=== PATIENT | male | born 1950 | race Caucasian/White ===

== ENCOUNTER 2020-11-22 10:53 | Inpatient (IN) ==
[2020-11-22] MEDS ORDERED: NS 500 ML IV 500 ML IV ONE (14:11)
[2020-11-22 14:50] LABS: BASOPHILS % (AUTO) 0.7 % (0.2-1.0); EOSINOPHILS # (AUTO) 0.2 x10^3/uL (0.0-0.2); EOSINOPHILS % (AUTO) 2.5 % (0.9-2.9); HEMATOCRIT 35.7 % (42.0-54.0); HEMOGLOBIN 12.3 g/dL (13.5-18.0); LYMPHOCYTES # (AUTO) 1.3 X10^3/uL (1.3-2.9); LYMPHOCYTES % (AUTO) 18.4 % (21.0-51.0); MEAN CORPUSCULAR HEMOGLOBIN 33.4 pg (27.0-34.0); MEAN CORPUSCULAR HGB CONC 34.5 g/dL (33.0-35.0); MEAN CORPUSCULAR VOLUME 96.7 fL (80.0-100.0); MEAN PLATELET VOLUME 7.9 fL (7.4-11.0); MONOCYTES # (AUTO) 0.9 x10^3/uL (0.3-0.8); MONOCYTES % (AUTO) 12.3 % (0.0-13.0); NEUTROPHILS # (AUTO) 4.7 x10^3/uL (2.2-4.8); NEUTROPHILS % (AUTO) 66.1 % (42.0-75.0); PLATELET COUNT 292 X10^3/uL (150.0-450.0); RED BLOOD COUNT 3.69 X10^6/uL (4.7-6.0); RED CELL DISTRIBUTION WIDTH 14.4 % (11.6-16.5); WHITE BLOOD COUNT 7.1 X10^3/uL (3.6-10.0)
[2020-11-22 14:57] LABS: ALANINE AMINOTRANSFERASE 28 Units/L (12-78); ALBUMIN 2.8 g/dL (3.4-5.0); ALKALINE PHOSPHATASE 121 Units/L (46-116); ASPARTATE AMINO TRANSFERASE 28 Units/L (15-37); BLOOD UREA NITROGEN 13 mg/dL (7-18); CALCIUM 8.5 mg/dL (8.5-10.1); CARBON DIOXIDE 33.4 mmol/L (21-32); CHLORIDE 102 mmol/L (98-107); COR CA(FOR HYPOALB) 9.5 mg/dL (8.5-10.1); CREATININE 0.85 mg/dL (0.70-1.30); MAGNESIUM 0.5 mg/dL (1.7-2.9); SODIUM 142 mmol/L (136-145); TOTAL PROTEIN 7.6 g/dL (6.4-8.2); eGFR NON BLACK RACES > 60 (>60)
[2020-11-22 15:06] LABS: CKMB % 1.7 % (<4); CREATINE KINASE 107 Units/L (39-308); CREATINE KINASE MB 1.8 ng/mL (0-4.0); TROPONIN I < 0.02 ng/mL (0-1.5)
[2020-11-22] MEDS ORDERED: POTASSIUM CHL 40 MEQ/NS 0.45% 500 ML IV PRN (15:16)
[2020-11-22] MEDS ORDERED: POTASSIUM CHL 60 MEQ/NS 0.45% 500 ML IV PRN (15:16)
[2020-11-22] MEDS ORDERED: POTASSIUM CHLORIDE LIQ 20 MEQ UDC PO PRN (15:16)
[2020-11-22] MEDS ORDERED: MICRO K EXTEN CAP 10 MEQ PO PRN (15:16)
[2020-11-22] MEDS ORDERED: K-DUR TAB 20 MEQ PO PRN (15:16)
[2020-11-22] MEDS ORDERED: KLOR-CON PO PRN (15:16)
[2020-11-22] MEDS: NS 1000 ML 1,000 ML IV SCH (15:22)
[2020-11-22 15:57] VITALS: BMI 27.2
--- NOTE | 2020-11-22 16:08 | RAD ---
HISTORYSYNCOPESTUDYX-ray chest two viewsCOMPARISONNoneFINDINGSHeart is normal in size. Probable COPD. Likely mild atelectasis in the lingula. No pneumothorax or pleural effusion is seen. No suggestion of pneumonia.IMPRESSIONProbable COPD.Electronically signed by: Patrick Amin (Nov 22, 2020 16:07:07)
[2020-11-22] MEDS: K-RIDER 10 MEQ/NS 100 ML 10 MEQ/100 ML BAG IV PRN ×2 (16:18→17:53)
[2020-11-22 19:44] LABS: CKMB % 1.6 % (<4); CREATINE KINASE 100 Units/L (39-308); CREATINE KINASE MB 1.6 ng/mL (0-4.0); TROPONIN I < 0.02 ng/mL (0-1.5)
[2020-11-22] MEDS: MAGNESIUM SULFATE 1 GRAM/100 mL PREMIX 1 GM/100 ML BAG IV PRN ×3 (20:35→23:03)
[2020-11-22] MEDS ORDERED: RESTORIL CAP 15 MG PO PRN (22:39)
[2020-11-22 23:29] LABS: CKMB % 1.6 % (<4); CREATINE KINASE 94 Units/L (39-308); CREATINE KINASE MB 1.5 ng/mL (0-4.0); TROPONIN I < 0.02 ng/mL (0-1.5)
[2020-11-23] MEDS: MAGNESIUM SULFATE 1 GRAM/100 mL PREMIX 1 GM/100 ML BAG IV PRN ×3 (00:28→02:49)
[2020-11-23 05:28] LABS: BASOPHILS % (AUTO) 0.5 % (0.2-1.0); EOSINOPHILS # (AUTO) 0.3 x10^3/uL (0.0-0.2); EOSINOPHILS % (AUTO) 3.7 % (0.9-2.9); HEMATOCRIT 34.9 % (42.0-54.0); LYMPHOCYTES # (AUTO) 1.2 X10^3/uL (1.3-2.9); LYMPHOCYTES % (AUTO) 17.4 % (21.0-51.0); MEAN CORPUSCULAR HEMOGLOBIN 33.5 pg (27.0-34.0); MEAN CORPUSCULAR HGB CONC 34.5 g/dL (33.0-35.0); MEAN CORPUSCULAR VOLUME 97.1 fL (80.0-100.0); MONOCYTES # (AUTO) 0.8 x10^3/uL (0.3-0.8); MONOCYTES % (AUTO) 11.1 % (0.0-13.0); NEUTROPHILS # (AUTO) 4.6 x10^3/uL (2.2-4.8); NEUTROPHILS % (AUTO) 67.3 % (42.0-75.0); PLATELET COUNT 315 X10^3/uL (150.0-450.0); RED CELL DISTRIBUTION WIDTH 14.2 % (11.6-16.5); WHITE BLOOD COUNT 6.8 X10^3/uL (3.6-10.0)
[2020-11-23 05:43] LABS: ALANINE AMINOTRANSFERASE 30 Units/L (12-78); ALBUMIN 2.7 g/dL (3.4-5.0); ALKALINE PHOSPHATASE 117 Units/L (46-116); ASPARTATE AMINO TRANSFERASE 27 Units/L (15-37); BLOOD UREA NITROGEN 10 mg/dL (7-18); CALCIUM 8.4 mg/dL (8.5-10.1); CARBON DIOXIDE 30.6 mmol/L (21-32); CHLORIDE 102 mmol/L (98-107); COR CA(FOR HYPOALB) 9.4 mg/dL (8.5-10.1); CREATININE 0.75 mg/dL (0.70-1.30); SODIUM 142 mmol/L (136-145); TOTAL PROTEIN 7.4 g/dL (6.4-8.2); eGFR NON BLACK RACES > 60 (>60)
[2020-11-23] MEDS ORDERED: BENADRYL CAP 50 MG PO PRN (06:04)
--- NOTE | 2020-11-23 10:31 | CT ---
HISTORYSYNCOPESTUDYHead CT without contrastCOMPARISONNoneTECHNIQUEAxial imaging was performed from the vertex to the base of skull without intravenous contrast being administered. Sagittal and coronal reformations were generated. Automated exposure control techniques were used with this exam.FINDINGSGeneralized age related atrophic changes are present. However there is no evidence of intracranial hemorrhage or extracerebral fluid collections. Ventricles are symmetric in size and position with no mass effect seen. Patchy low density is seen in a periventricular and subcortical white matter distribution. These findings are consistent with chronic small vessel ischemia. On the bone windows, no acute bony abnormality is seen. Visualized aspect of the paranasal sinuses and mastoid air cells are predominantly clear.IMPRESSION1. No acute intracranial abnormality is seen on this exam.2. Age related atrophic changes and evidence of chronic small vessel ischemia are incidental findingElectronically signed by: RL CABRERA (Nov 23, 2020 10:29:55)
--- NOTE | 2020-11-23 10:39 | DR.UPDATE ---
H&P Update History and Physical Update: History and Physical reviewed and patient examined. Changes noted: Yes with the following: TIME SPENT ON CLINICAL ASSESSMENT, REVIEWING LABS AND IMAGING, DECISION MAKING, AND DOCUMENTATION GREATER THAN 75 MINUTES. PRESENTED TO THE OFFICE WITH REPORTS OF A SYNCOPAL EPISODE THAT OCCURRED ONE DAY PRIOR TO HIS VISIT. PATIENT REPORTED THAT HE LOST CONSCIOUSNESS FOR 15 TO 20 MINUTES. PRIOR TO SYNCOPE, PATIENT REPORTS THAT HE FELT DIZZY. HE ADMITS TO [place] ON HIS STOMACH AND HAS HAD ABDOMINAL PAIN SINCE THEN. PATIENT DID ADMIT TO DIARRHEA FOR THE PAST 3 TO 4 MONTHS. HE WAS SCHEDULED FOR A COLONOSCOPY WITH THIS SATURDAY. HE WAS ADMITTED TO THE HOSPITAL FOR FURTHER EVALUATION AND TREATMENT. ON ARRIVAL TO THE HOSPITAL, VITALS WERE 97.9-79-20-97%-131/79. LABS WERE OBTAINED. ABNORMAL LAB VALUES INCLUDE THE FOLLOWING: RBC 3.69, HGB 12.3, HCT 35.7, POTASSIUM 2.5, CARBON DIOXIDE 33.4, MAGNESIUM 0.5, ALK PHOS 121, ALBUMIN 2.8, GLOBULIN 4.8. CARDIAC ENZYMES WITHIN NORMAL LIMITS. STOOL IS POSITIVE FOR OCCULT BLOOD. A CHEST XRAY WAS OBTAINED AND REVEALED: PROBABLE COPD. EKG REVEALED: SINUS RHYTHM WITH HR 71. HE WAS STARTED ON NORMAL SALINE AT 75 ML/HR, RESTORIL 15MG PO HS PRN, AND THE POTASSIUM AND MAGNESIUM PROTOCOLS. WE WILL OBTAIN A BRAIN CT WITHOUT CONTRAST, AN ABDOMEN/PELVIS CT WITH CONTRAST DUE TO ABDOMINAL PAIN AND OCCULT BLOOD IN STOOL, AND SERIAL CARDIAC ENZYMES AND EKGs. WE WILL CONSULT FOR SCHEDULED COLONOSCOPY TO BE DONE WHILE HE IS IN THE HOSPITAL. OTHERWISE, WE WILL FOLLOW UP WITH AM LABS AND CONTINUE TO MONITOR. TIME SPENT ON CLINICAL ASSESSMENT, REVIEWING LABS AND IMAGING, DECISION MAKING, AND DOCUMENTATION GREATER THAN 75 MINUTES. Prescription drug monitoring program results: PDMP was not reviewed H&P Reviewed: Yes Patient was examined?: Yes
[2020-11-23] MEDS ORDERED: NS 100 ML IV 100 ML IV ONE (12:20)
[2020-11-23 12:57] LABS: BILIRUBIN,URINE NEGATIVE (NEGATIVE); BLOOD/HEMOGLOBIN,URINE 1+ (NEGATIVE); GLUCOSE, URINE NEGATIVE (NEGATIVE); KETONES,URINE NEGATIVE (NEGATIVE); LEUKOCYTE ESTERASE ,URINE NEGATIVE (NEGATIVE); NITRITES,URINE NEGATIVE (NEGATIVE); PROTEIN,URINE NEGATIVE (NEGATIVE); UROBILINOGEN,URINE NORMAL (NORMAL)
[2020-11-23 13:01] LABS: APPEARANCE,URINE CLEAR (CLEAR); BACTERIA,URINE NEGATIVE /HPF (NEGATIVE); COLOR,URINE YELLOW (YELLOW); RBC,URINE 0-2 /HPF (0-3); SQUAMOUS EPITHELIAL CELL,UR NEGATIVE /HPF (NEGATIVE)
--- NOTE | 2020-11-23 13:26 | CT ---
HISTORYDIARRHEA, ABDOMINAL PAINSTUDYCT abdomen pelvis with IV contrastCOMPARISONNoneTECHNIQUEMultiple axial images of the abdomen and pelvis were obtained from the lung bases to the pubic symphysis after the administration of IV contrast. 95 cc Omnipaque 350 IV contrast. Dose reduction techniques including Automated Exposure Control (AEC) and adjustment of mA and kV were utilized.FINDINGSThe visualized portions of the lung bases suggest COPD changes and mild atelectasis.The liver and spleen display no abnormalities.Gallbladder is poorly distended. Mild wall thickening is not excluded but no stones or pericholecystic fluid are seen. No biliary ductal dilation.No pancreatic abnormality is seen.The adrenal glands appear normal.Kidneys are excreting contrast at time of imaging limiting evaluation for tiny nonobstructing stones. No hydronephrosis or renal mass is seen. Ureters and bladder appear normal. Artifact from right hip prosthesis partially obscures the pelvis.Tiny appendiceal stump is seen. No bowel obstruction. No suggestion of colitis. There is wall thickening throughout the greater curvature of the stomach and possibly the proximal lesser curvature. While findings could be due to gastritis, gastric malignancy could cause the appearance. Correlation with endoscopy is recommended.No abnormalities are seen of the reproductive organs.Mild dilation of the distal abdominal aorta to 3.3 cm in diameter. Common iliac arteries are normal in size. Mild diffuse atherosclerotic changes are seen.Small likely reactive periportal lymph nodes are seen. Lymph node anterior to the IVC is the largest lymph node measuring 9 mm in the short axis. Malignant lymphadenopathy is not completely excluded given the appearance of stomach.No free intraperitoneal air or fluid is seen.No acute bony abnormality is seen. Mild scoliosis and moderate degenerative changes are seen in the lumbar spine. No abnormalities are seen with the visualized portions of the right hip prosthesis.IMPRESSIONGastric wall thickening is concerning for possible gastric malignancy but could be gastritis. Correlation with endoscopy is recommended.Probably reactive small periportal lymph nodes. Malignant lymphadenopathy is not completely excluded given the appearance of the stomach.Electronically signed by: Patrick Amin (Nov 23, 2020 13:24:32)
[2020-11-23] MEDS ORDERED: BENADRYL CAP/TAB 25 MG PO PRN (14:00)
[2020-11-23] MEDS ORDERED: MIRALAX POWDER (255 GRAMS BTL) PO NR (14:00)
[2020-11-23] MEDS: NS 1000 ML 1,000 ML IV SCH ×2 (14:49→20:35)
[2020-11-23] MEDS ORDERED: DULCOLAX TAB EC 5 MG PO ONE ×2 (15:00→21:00)
[2020-11-23 16:10] LABS: CRYPTOSPORIDIUM PARVUM ANTIGEN NEGATIVE (NEGATIVE); GIARDIA LAMBLIA ANTIGEN NEGATIVE (NEGATIVE)
--- NOTE | 2020-11-23 17:50 | DR.CONSULT ---
Consult - Consultation for Day of: Date: 11/23/20 - Chief Complaint Chief Complaint: Patient referred for GI Bleed and persistent diarrhea. Patient with complaints of diarrhea. - History of Present Illness History of Present Illness: Patient is a 70 yo male who was referred for GI Bleed and persistent diarrhea. Patient with complaints of diarrhea. Patient denies dysphagia, dyspepsia, nausea, vomiting, abdominal pain, constipation, melena and hematochezia. Patient was seen in office as outpatient and was scheduled for colonoscopy due to persistent diarrhea despite medication treatment and negative stool studies. Last colon was 08/14/18 which showed internal hemorrhiods, diverticulosis and tubular adenomatous colon polyp. Hgb 12.0, Hct 34.9, Plt 315, BUN 10, Creatinine 0.75, T. Bili 0.6, AST 27, ALT 30, ALP 117 - Past Medical History Past Medical History: Dyslipidemia, GERD, Hypertension - Past Surgical History Surgical History: Appendectomy, Other - Family History Family Medical History: Cancer - Social History Does patient currently use any type of tobacco product: No Have you used tobacco products in the last 12 months: No Type of Tobacco Use: None Does any household member use tobacco: No Alcohol Use: DAILY Drug Use: None - Medications Home Medications: amoxicillin Allergy (Verified 08/14/18 07:42) Sulfa (Sulfonamide Antibiotics) [SULFA] Allergy (Verified 08/14/18 07:42) CONTINUE taking the following medications allopurinol 300 mg PO DAILY 11/22/20 [History] amlodipine 5 mg PO HS 11/22/20 [History] butalbital-acetaminophen 1 tab PO BID PRN 11/22/20 [History] hydrochlorothiazide 25 mg PO DAILY 11/22/20 [History] lisinopril 20 mg PO BID 11/22/20 [History] metoprolol tartrate 12.5 mg PO BID 11/22/20 [History] - Review of Systems Gastrointestinal: See HPI, Diarrhea. denies: Nausea, Vomiting, Abdominal Pain, Constipation, Melena, Hematochezia - Physical Exam Vital Signs: Temperature 98.6 F Pulse Rate [Left Radial] 78 Respiratory Rate 20 Blood Pressure [Left Arm] 144/82 Blood Pressure 113/71 O2 Sat by Pulse Oximetry 96 Oriented: Normal Eyes: Normal Ear: Normal Nose: Normal Throat: Normal Respiratory: Clear Throughout Cardiovascular: Normal Auscultation: Bowel Sounds: Normal Palpation: Normal. negative: Spleen Enlarged, Liver Enlarged, Mass Pulsatile, Other (no distention) Tenderness: Normal (non tender) Skin: Normal Musculoskeletal: Normal Psychiatric: Normal Mood Description: Calm Affect: Normal Speech Pattern: Clear, Appropriate - Plan Plan: Assessment. 1. Persistent diarrhea. Plan. 1. Colonoscopy in am. Plan reviewed with Dr. Nichole - Allergies Allergies/Adverse Reactions: Allergies Allergy/AdvReac Type Severity Reaction Status Date / Time amoxicillin Allergy Verified 08/14/18 07:42 Sulfa (Sulfonamide Allergy Verified 08/14/18 07:42 Antibiotics) [SULFA]
[2020-11-23] MEDS: LEVSIN/MAALOX/LIDOC VISC PO SCH ×2 (18:09→20:35)
[2020-11-23] MEDS: PROTONIX INJ 40 MG VIAL IVP SCH (18:10)
[2020-11-23] MEDS: PEPCID 20 MG IV PREMIX* 20 MG/50 ML BAG IV SCH (18:10)
[2020-11-24 06:10] LABS: BASOPHILS # (AUTO) 0.1 X10^3/uL (0.0-0.1); BASOPHILS % (AUTO) 0.9 % (0.2-1.0); EOSINOPHILS # (AUTO) 0.2 x10^3/uL (0.0-0.2); EOSINOPHILS % (AUTO) 2.4 % (0.9-2.9); HEMATOCRIT 37.4 % (42.0-54.0); HEMOGLOBIN 12.7 g/dL (13.5-18.0); LYMPHOCYTES # (AUTO) 1.4 X10^3/uL (1.3-2.9); MEAN CORPUSCULAR HEMOGLOBIN 33.6 pg (27.0-34.0); MEAN CORPUSCULAR VOLUME 98.7 fL (80.0-100.0); MEAN PLATELET VOLUME 8.2 fL (7.4-11.0); MONOCYTES % (AUTO) 13.4 % (0.0-13.0); NEUTROPHILS # (AUTO) 4.5 x10^3/uL (2.2-4.8); NEUTROPHILS % (AUTO) 63.3 % (42.0-75.0); PLATELET COUNT 318 X10^3/uL (150.0-450.0); RED BLOOD COUNT 3.78 X10^6/uL (4.7-6.0); RED CELL DISTRIBUTION WIDTH 14.2 % (11.6-16.5); WHITE BLOOD COUNT 7.1 X10^3/uL (3.6-10.0)
[2020-11-24 06:47] LABS: ALANINE AMINOTRANSFERASE 33 Units/L (12-78); ALBUMIN 3.1 g/dL (3.4-5.0); ALKALINE PHOSPHATASE 138 Units/L (46-116); ASPARTATE AMINO TRANSFERASE 34 Units/L (15-37); BLOOD UREA NITROGEN 8 mg/dL (7-18); CALCIUM 8.9 mg/dL (8.5-10.1); CARBON DIOXIDE 28.3 mmol/L (21-32); CHLORIDE 104 mmol/L (98-107); COR CA(FOR HYPOALB) 9.6 mg/dL (8.5-10.1); CREATININE 0.84 mg/dL (0.70-1.30); MAGNESIUM 1.7 mg/dL (1.7-2.9); SODIUM 141 mmol/L (136-145); TOTAL PROTEIN 8.1 g/dL (6.4-8.2); eGFR NON BLACK RACES > 60 (>60)
[2020-11-24] MEDS ORDERED: D5 LR 1000 ML 1,000 ML IV ONE (07:58)
[2020-11-24] MEDS ORDERED: DIPRIVAN VIAL 20 ML ONE ×2 (08:54→09:11)
[2020-11-24] MEDS: LEVSIN/MAALOX/LIDOC VISC PO SCH ×4 (09:46→20:41)
[2020-11-24] MEDS: NS 1000 ML 1,000 ML IV SCH (10:00)
[2020-11-24] MEDS: PEPCID 20 MG IV PREMIX* 20 MG/50 ML BAG IV SCH (10:01)
[2020-11-24] MEDS: PROTONIX INJ 40 MG VIAL IVP SCH (10:02)
--- NOTE | 2020-11-24 10:40 | PCM.PROG ---
Progress Note - Progress Note for Day of Date of Exam: 11/24/20 - Subjective Subjective: IS BEING TREATED FOR SYNCOPE, ABDOMINAL PAIN, BLOOD IN STOOL, DIARRHEA, HYPOKALEMIA, AND MYPOMAGNESEMIA. TODAY, HE IS ALERT AND ORIENTED, LYING IN BED ON MORNING ROUNDS. HE CONTINUES WITH COMPLAINTS OF ABDOMINAL CRAMPING AND WEAKNESS THIS MORNING. HE ALSO CONTINUES WITH DARK STOOLS. PATIENT HAS DECREASED SWELLING OF THE LIPS COMPARED TO YESTERDAY. ON EXAMINATION, HEART IS REGULAR IN RATE AND RHYTHM. BILATERAL LUNGS ARE NOTED TO HAVE DIMINISHED LUNG SOUNDS THROUGHOUT. ABDOMEN IS ROUND, SOFT, AND NOTED WITH DIFFUSE TENDERNESS. NORMAL BOWEL SOUNDS NOTED IN ALL QUADRANTS. HIS VITALS THIS MORNING ARE: 98.4-59-20-96%-133/79. LABS WERE OBTAINED. ABNORMAL LAB VALUES INCLUDE THE FOLLOWING: RBC 3.78, HGB 12.7, HCT 37.4, POTASSIUM 3.3, TOTAL BILI 1.10, ALK PHOS 138, ALBUMIN 3.1, GLOBULIN 5.0. STOOL IS POSITIVE FOR H.PYLORI. STOOL CULTURE IS PENDING. WE OBTAINED AN ABDOMEN/PELVIS CT WITH CONTRAST YESTERDAY WHICH REVEALED: Gastric wall thickening is concerning for possible gastric malignancy but could be gastritis. Correlation with endoscopy is recommended. Probably reactive small periportal lymph nodes. Malignant lymphadenopathy is not completely excluded given the appearance of the stomach. HE IS CURRENTLY RECEIVING NORMAL SALINE WITH 20MEQ KCL AT 80 ML/HR, RESTORIL 15MG PO HS PRN, GI COCKTAIL 30ML PO QID, PEPCID 20MG IV DAILY, PROTONIX 40MG IV DAILY, THE POTASSIUM AND MAGNESIUM PROTOCOLS. HE IS SCHEDULED FOR A COLONOSCOPY THIS MORNING. WE ARE IN AGREEMENT WITH PLANS. OTHERWISE, WE WILL CONTINUE WITH CURRENT PLAN OF CARE. WE WILL FOLLOW UP WITH AM LABS AND CONTINUE TO MONITOR. TIME SPENT ON CLINICAL ASSESSMENT, REVIEWING LABS AND IMAGING, DECISION MAKING, AND DOCUMENTATION GREATER THAN 45 MINUTES. - Past Medical Family Social History Past Med/Fam/Surg Hx: No changes since H&P Allergies: Allergies amoxicillin Allergy (Verified 11/24/20 08:11) Sulfa (Sulfonamide Antibiotics) [SULFA] Allergy (Verified 11/24/20 08:11) - Review of Systems ROS: No change since H&P - Vital Signs and I&O's Vital Signs: Temperature 98.4 F Pulse Rate [Left Radial] 59 Respiratory Rate 20 Blood Pressure [Left Arm] 133/79 Blood Pressure 113/71 O2 Sat by Pulse Oximetry 96 Intake and Output: Intake & Output 11/21/20 11/22/20 11/23/20 11/24/20 11:59 11:59 11:59 11:59 Intake Total 1380 / 1380 2380 / 2380 Output Total 200 / 200 Balance 1380 / 1380 2180 / 2180 - Physical Exam Oriented: Normal Eyes: Normal Ear: Normal Nose: Normal Throat: Normal Respiratory: Generalized, Diminished Cardiovascular: Normal Auscultation: Bowel Sounds: Normal Tenderness: Diffuse, Mild Skin: Normal Musculoskeletal: Normal Psychiatric: Normal Mood Description: Calm Affect: Normal Speech Pattern: Clear, Appropriate - Laboratory and Diagnostics Result Diagrams: 11/24/20 05:20 11/24/20 05:20 Labs: 11/24/20 09:08 Stool - Final Laboratory WBC 7.1 X10^3/uL (3.6-10.0) 11/24/20 05:20 RBC 3.78 X10^6/uL (4.7-6.0) L 11/24/20 05:20 Hgb 12.7 g/dL (13.5-18.0) L 11/24/20 05:20 Hct 37.4 % (42.0-54.0) L 11/24/20 05:20 MCV 98.7 fL (80.0-100.0) 11/24/20 05:20 MCH 33.6 pg (27.0-34.0) 11/24/20 05:20 MCHC 34.0 g/dL (33.0-35.0) 11/24/20 05:20 RDW 14.2 % (11.6-16.5) 11/24/20 05:20 Plt Count 318 X10^3/uL (150.0-450.0) 11/24/20 05:20 MPV 8.2 fL (7.4-11.0) 11/24/20 05:20 Neut % (Auto) 63.3 % (42.0-75.0) 11/24/20 05:20 Lymph % (Auto) 20.0 % (21.0-51.0) L 11/24/20 05:20 [place] % (Auto) 13.4 % (0.0-13.0) H 11/24/20 05:20 Eos % (Auto) 2.4 % (0.9-2.9) 11/24/20 05:20 Baso % (Auto) 0.9 % (0.2-1.0) 11/24/20 05:20 Neut # (Auto) 4.5 x10^3/uL (2.2-4.8) 11/24/20 05:20 Lymph # (Auto) 1.4 X10^3/uL (1.3-2.9) 11/24/20 05:20 [place] # (Auto) 1.0 x10^3/uL (0.3-0.8) H 11/24/20 05:20 Eos # (Auto) 0.2 x10^3/uL (0.0-0.2) 11/24/20 05:20 Baso # (Auto) 0.1 X10^3/uL (0.0-0.1) 11/24/20 05:20 Absolute Nucleated RBC 0.0 /100WBC 11/24/20 05:20 Sodium 141 mmol/L (136-145) 11/24/20 05:20 Corrected Sodium TNP 11/24/20 05:20 Potassium 3.3 mmol/L (3.5-5.1) L 11/24/20 05:20 Chloride 104 mmol/L (98-107) 11/24/20 05:20 Carbon Dioxide 28.3 mmol/L (21-32) 11/24/20 05:20 BUN 8 mg/dL (7-18) 11/24/20 05:20 Creatinine 0.84 mg/dL (0.70-1.30) 11/24/20 05:20 Est GFR (MDRD) Af Amer > 60 (>60) 11/24/20 05:20 Est GFR (MDRD) Non-Af > 60 (>60) 11/24/20 05:20 Glucose 99 mg/dL (65-99) 11/24/20 05:20 Calcium 8.9 mg/dL (8.5-10.1) 11/24/20 05:20 Corrected Calcium 9.6 mg/dL (8.5-10.1) 11/24/20 05:20 Magnesium 1.7 mg/dL (1.7-2.9) 11/24/20 05:20 Total Bilirubin 1.10 mg/dL (0.2-1.0) H 11/24/20 05:20 AST 34 Units/L (15-37) 11/24/20 05:20 ALT 33 Units/L (12-78) 11/24/20 05:20 Alkaline Phosphatase 138 Units/L (46-116) H 11/24/20 05:20 Creatine Kinase 94 Units/L (39-308) 11/22/20 22:55 CK-MB (CK-2) 1.5 ng/mL (0-4.0) 11/22/20 22:55 CK/CKMB % Calc 1.6 % (<4) 11/22/20 22:55 Troponin I < 0.02 ng/mL (0-1.5) 11/22/20 22:55 Total Protein 8.1 g/dL (6.4-8.2) 11/24/20 05:20 Albumin 3.1 g/dL (3.4-5.0) L 11/24/20 05:20 Globulin 5.0 g/dL (2.5-4.5) H 11/24/20 05:20 Albumin/Globulin Ratio 0.6 Ratio (1.1-2.1) L 11/24/20 05:20 TSH 3rd Generation 0.692 uIU/mL (0.358-3.74) 11/24/20 05:20 Specimen Type Clean catch urine 11/23/20 12:45 Urine Color Yellow (YELLOW) 11/23/20 12:45 Urine Appearance Clear (CLEAR) 11/23/20 12:45 Urine pH 8.0 (5.0 - 8.0) 11/23/20 12:45 Ur Specific [place] 1.020 (1.000-1.030) 11/23/20 12:45 Urine Protein Negative (NEGATIVE) 11/23/20 12:45 Urine Glucose (UA) Negative (NEGATIVE) 11/23/20 12:45 Urine Ketones Negative (NEGATIVE) 11/23/20 12:45 Urine Occult Blood 1+ (NEGATIVE) 11/23/20 12:45 Urine Nitrite Negative (NEGATIVE) 11/23/20 12:45 Urine Bilirubin Negative (NEGATIVE) 11/23/20 12:45 Urine Urobilinogen Normal (NORMAL) 11/23/20 12:45 Ur Leukocyte Esterase Negative (NEGATIVE) 11/23/20 12:45 Urine RBC 0-2 /HPF (0-3) 11/23/20 12:45 Urine WBC None seen /HPF (0-5) 11/23/20 12:45 Ur Squamous Epith Cells Negative /HPF (NEGATIVE) 11/23/20 12:45 Urine Bacteria Negative /HPF (NEGATIVE) 11/23/20 12:45 Ur Culture Indicated? No/not indicated 11/23/20 12:45 Stool Description 150g wolfe liquid 11/23/20 15:05 Stool Description 150g wolfe liquid 11/23/20 15:05 Stl Occult Blood (IFOB) Negative (NEGATIVE) 11/23/20 15:05 Stool for White Cells Negative (NEGATIVE) 11/23/20 15:05 Stl C. diff Tox B Gene Negative (NEGATIVE) 11/23/20 15:05 Stl C. diff [id number] Presumptive negative (NEGATIVE) 11/23/20 15:05 Stool H. pylori Ag Positive (NEGATIVE) A 11/23/20 15:05 Cryptosporid parvum Ag Negative (NEGATIVE) 11/23/20 15:05 Giardia lamblia Ag Negative (NEGATIVE) 11/23/20 15:05 Tissue Pathology To follow 11/24/20 09:08 - Plan (1) Abdominal pain Status: Acute Qualifiers: Abdominal location: generalized Qualified Code(s): R10.84 - Generalized abdominal pain Plan: ADMIT, COLONOSCOPY TODAY, NORMAL SALINE WITH 20MEQ KCL AT 80 ML/HR, RE STORIL 15MG PO HS PRN, GI COCKTAIL 30ML PO QID, PEPCID 20MG IV DAILY, PROTONIX 40MG IV DAILY, THE POTASSIUM AND MAGNESIUM PROTOCOLS. (2) Melena Status: Acute (3) Diarrhea Status: Acute Qualifiers: Diarrhea type: unspecified type Qualified Code(s): R19.7 - Diarrhea, unspecified (4) Hypomagnesemia Status: Acute (5) Hypokalemia Status: Acute (6) Syncope Status: Acute Qualifiers: Syncope type: unspecified Qualified Code(s): R55 - Syncope and collapse
[2020-11-24] MEDS: MAG-OX TAB PO SCH ×2 (12:01→21:05)
[2020-11-24] MEDS: NS + KCL 20 MEQ/L 1,000 ML IV SCH ×2 (12:01→23:05)
[2020-11-24] MEDS ORDERED: NORCO 5/325 MG TAB PO PRN (15:16)
[2020-11-25 06:23] LABS: BASOPHILS # (AUTO) 0.1 X10^3/uL (0.0-0.1); EOSINOPHILS # (AUTO) 0.2 x10^3/uL (0.0-0.2); EOSINOPHILS % (AUTO) 2.8 % (0.9-2.9); HEMATOCRIT 34.3 % (42.0-54.0); HEMOGLOBIN 11.7 g/dL (13.5-18.0); LYMPHOCYTES # (AUTO) 1.3 X10^3/uL (1.3-2.9); LYMPHOCYTES % (AUTO) 22.2 % (21.0-51.0); MEAN CORPUSCULAR HEMOGLOBIN 33.5 pg (27.0-34.0); MEAN CORPUSCULAR HGB CONC 34.2 g/dL (33.0-35.0); MEAN CORPUSCULAR VOLUME 98.1 fL (80.0-100.0); MEAN PLATELET VOLUME 7.9 fL (7.4-11.0); MONOCYTES # (AUTO) 0.8 x10^3/uL (0.3-0.8); MONOCYTES % (AUTO) 13.9 % (0.0-13.0); NEUTROPHILS # (AUTO) 3.5 x10^3/uL (2.2-4.8); NEUTROPHILS % (AUTO) 60.1 % (42.0-75.0); PLATELET COUNT 289 X10^3/uL (150.0-450.0); RED BLOOD COUNT 3.49 X10^6/uL (4.7-6.0); RED CELL DISTRIBUTION WIDTH 13.6 % (11.6-16.5); WHITE BLOOD COUNT 5.8 X10^3/uL (3.6-10.0)
[2020-11-25 06:45] LABS: ALANINE AMINOTRANSFERASE 24 Units/L (12-78); ALBUMIN 2.6 g/dL (3.4-5.0); ALKALINE PHOSPHATASE 129 Units/L (46-116); ASPARTATE AMINO TRANSFERASE 22 Units/L (15-37); BLOOD UREA NITROGEN 9 mg/dL (7-18); CALCIUM 8.8 mg/dL (8.5-10.1); CARBON DIOXIDE 29.8 mmol/L (21-32); CHLORIDE 107 mmol/L (98-107); COR CA(FOR HYPOALB) 9.9 mg/dL (8.5-10.1); CREATININE 0.74 mg/dL (0.70-1.30); MAGNESIUM 1.5 mg/dL (1.7-2.9); SODIUM 144 mmol/L (136-145); TOTAL PROTEIN 7.5 g/dL (6.4-8.2); eGFR NON BLACK RACES > 60 (>60)
[2020-11-25] MEDS: LEVSIN/MAALOX/LIDOC VISC PO SCH (09:21)
[2020-11-25] MEDS: PROTONIX INJ 40 MG VIAL IVP SCH (09:23)
[2020-11-25] MEDS: PEPCID 20 MG IV PREMIX* 20 MG/50 ML BAG IV SCH (09:23)
[2020-11-25] MEDS: MAG-OX TAB PO SCH (09:23)
[2020-11-27 15:05] VITALS: BP 133/79
== END 2020-11-25 11:55 | disposition home or self-care (01) | DRG 312 ==
LOC: MED/SURG
PROVIDERS: ADMIT Internal Medicine; ATTEND Internal Medicine
DX: J44.9 Chronic obstructive pulmonary disease, unspecified; K63.5 Polyp of colon; Z86.010 Personal history of colon polyps; K64.8 Other hemorrhoids; E78.2 Mixed hyperlipidemia; R19.7 Diarrhea, unspecified; K21.9 Gastro-esophageal reflux disease without esophagitis; R55 Syncope and collapse; M25.519 Pain in unspecified shoulder; E87.6 Hypokalemia; I10 Essential (primary) hypertension; K52.89 Other specified noninfective gastroenteritis and colitis; R10.84 Generalized abdominal pain; E83.42 Hypomagnesemia; D50.8 Other iron deficiency anemias; K92.1 Melena

== ENCOUNTER 2021-07-21 11:58 | Inpatient (IN) ==
--- NOTE | 2021-07-21 12:46 | DR.DIZZY ---
HPI Time seen Time Seen by Provider: 07/21/21 12:43 PCP Primary Care Physician: DR ANNA Complaint Chief Complaint Doctor Comments: DIZZINESS FOR ONE WEEK WITH DIARRHEA WITH LOW MG AND K. WAS GIVEN INFUSION OF MG AND K OUTPATIENT BY PCP THIS WEEK. Chief Complaint:: PT C/O INTERMITTENT DIZZINESS X 3-4 DAYS ASSOCIATED WITH DIARRHEA X 1 WEEK. Self Treatment fo Chief Complaint: WAS TREATED AN OUTPATIENT BY PCP WITH IV MAGNESIUM AND POTASSIUM COVID-19 Coronavirus risk:travel/contact w/high risk person: No Has patient experienced Coronavirus symptoms: No Source History Provided: Patient Mode of Arrival Mode of Arrival: Ambulatory Timing Onset of Chief Complaint: 07/14/21 Context Stroke Symptoms: Acute confusion PMH PMH Past Medical History: Yes Past Medical History: Dyslipidemia, GERD and Hypertension Past Surgical History: Yes Surgical History: Appendectomy Family History History of Family Medical Conditions: Yes Family Medical History: [place] and Coronary Artery Disease Social History Does patient currently use any type of tobacco product: No Have you used tobacco products in the last 12 months: No Type of Tobacco Use: None Does any household member use tobacco: No Alcohol Use: Rarely Do you use any recreational Drugs:: No Lives With: Alone Lives Where: Home Travel Risk Coronavirus risk:travel/contact w/high risk person: No Has patient experienced Coronavirus symptoms: No Infectious screening In the last 2 months have you had wt loss of >10#?: NO Have you had fever, night sweats or hemotysis?: No Have you traveled outside the country in the last 6 months?: No Isolation: Standard ROS Review of Systems Constitutional: No Symptoms Reported Eyes: No Symptoms Reported ENTM: No Symptoms Reported Respiratoy: No Symptoms Reported Cardiovascular: No Symptoms Reported Gastrointestinal/Abdominal: Abdominal Pain and Diarrhea Genitourinary: No Symptoms Reported Neurological: No Symptoms Reported Musculoskeletal: No Symptoms Reported Integumentary: No Symptoms Reported Hematologic/Lymphatic: No Symptoms Reported Endocrine: No Symptoms Reported Psychiatric: No Symptoms Reported All Other Systems: Reviewed and Negative PE Vital Signs Vitals: Temperature 97.2 F Pulse Rate 86 Respiratory Rate 22 Blood Pressure [Right Arm] 127/72 Blood Pressure 141/63 O2 Sat by Pulse Oximetry 98 General Limitations: No Limitations General Appearance: Alert and In No Apparent Distress Head Head Exam: Normal Inspection Eyes Eye exam: Normal Appearance ENT ENT Exam: Normal Exam, Normal Oropharynx and Normal External Ear Exam Neck Neck Exam: Normal Inspection and Full ROM Chest Chest Inspection: Normal Inspection Respiratory Respiratory Exam: Normal Lung Sounds Bilat Cardiovascular Cardiovascular Exam: Regular Rate and Normal Rhythm Abdominal Exam Abdominal Exam: Normal Inspection, Soft and Hyperactive Bowel Sounds Rectal Rectal Exam: Deferred Extremeties Extremities Exam: Normal Inspection and Full ROM Back Back Exam: Normal Inspection and Full ROM Neurologic Neurological Exam: Alert and Oriented X3 Psychiatric Psychiatric Exam: Normal Affect and Normal Mood Skin Skin Exam: Warm, Dry, Intact and Normal Color MDM Additional Information Obtained Additional Findings: gastroenteritis,hypomagnesemia,hypokalemia COURSE Treatment Treatment: patient was found to have magnesium level of 0 and will be given a infusion on 2 gram of magnesium in er. CT SCAN OF BRAIN WAS NEGATIVE FOR ABNORMALITY. ROR Labs Reviewed Laboratory Results Reviewed?: Yes (mag levwel was 0) Result Diagrams: 07/27/21 05:10 07/27/21 05:10 Laboratory: WBC 5.9 X10^3/uL (3.6-10.0) 07/21/21 13:08 RBC 3.95 X10^6/uL (4.7-6.0) L 07/21/21 13:08 Hgb 13.1 g/dL (13.5-18.0) L 07/21/21 13:08 Hct 38.9 % (42.0-54.0) L 07/21/21 13:08 MCV 98.4 fL (80.0-100.0) 07/21/21 13:08 MCH 33.1 pg (27.0-34.0) 07/21/21 13:08 MCHC 33.7 g/dL (33.0-35.0) 07/21/21 13:08 RDW 13.6 % (11.6-16.5) 07/21/21 13:08 Plt Count 297 X10^3/uL (150.0-450.0) 07/21/21 13:08 MPV 8.1 fL (7.4-11.0) 07/21/21 13:08 Neut % (Auto) 65.0 % (42.0-75.0) 07/21/21 13:08 Lymph % (Auto) 21.0 % (21.0-51.0) 07/21/21 13:08 [place] % (Auto) 10.5 % (0.0-13.0) 07/21/21 13:08 Eos % (Auto) 2.7 % (0.9-2.9) 07/21/21 13:08 Baso % (Auto) 0.8 % (0.2-1.0) 07/21/21 13:08 Neut # (Auto) 3.9 x10^3/uL (2.2-4.8) 07/21/21 13:08 Lymph # (Auto) 1.2 X10^3/uL (1.3-2.9) L 07/21/21 13:08 [place] # (Auto) 0.6 x10^3/uL (0.3-0.8) 07/21/21 13:08 Eos # (Auto) 0.2 x10^3/uL (0.0-0.2) 07/21/21 13:08 Baso # (Auto) 0.0 X10^3/uL (0.0-0.1) 07/21/21 13:08 Absolute Nucleated RBC 0.1 /100WBC 07/21/21 13:08 PT 13.7 SECONDS (11.8-14.3) 07/21/21 13:08 INR Target Range - 07/21/21 13:08 INR 1.11 (0.8-1.3) 07/21/21 13:08 APTT 29.6 SECONDS (22.9-36.5) 07/21/21 13:08 PTT Comment - 07/21/21 13:08 Sodium 144 mmol/L (136-145) 07/21/21 13:08 Corrected Sodium 145 mmol/L (136-145) 07/21/21 13:08 Potassium 3.5 mmol/L (3.5-5.1) 07/21/21 13:08 Chloride 106 mmol/L (98-107) 07/21/21 13:08 Carbon Dioxide 27.7 mmol/L (21-32) 07/21/21 13:08 BUN 13 mg/dL (7-18) 07/21/21 13:08 Creatinine 1.05 mg/dL (0.70-1.30) 07/21/21 13:08 Est GFR (MDRD) Af Amer > 60 (>60) 07/21/21 13:08 Est GFR (MDRD) Non-Af > 60 (>60) 07/21/21 13:08 Glucose 133 mg/dL (65-99) H 07/21/21 13:08 Calcium 7.6 mg/dL (8.5-10.1) L 07/21/21 13:08 Corrected Calcium TNP 07/21/21 13:08 Magnesium 0.5 mg/dL (1.7-2.9) L 07/21/21 16:35 Total Bilirubin 0.70 mg/dL (0.2-1.0) 07/21/21 13:08 AST 35 Units/L (15-37) 07/21/21 13:08 ALT 32 Units/L (12-78) 07/21/21 13:08 Alkaline Phosphatase 87 Units/L (46-116) 07/21/21 13:08 Creatine Kinase 108 Units/L (39-308) 07/21/21 13:08 CK-MB (CK-2) 1.3 ng/mL (0-4.0) 07/21/21 13:08 CK/CKMB % Calc 1.2 % (<4) 07/21/21 13:08 Troponin I High Sens 7.1 ng/L (4.0-60.0) 07/21/21 13:08 Total Protein 7.9 g/dL (6.4-8.2) 07/21/21 13:08 Albumin 3.5 g/dL (3.4-5.0) 07/21/21 13:08 Globulin 4.4 g/dL (2.5-4.5) 07/21/21 13:08 Albumin/Globulin Ratio 0.8 Ratio (1.1-2.1) L 07/21/21 13:08 SARS CoV-2 RNA Rapid JAGJIT Negative (NEGATIVE) 07/21/21 17:38 Opioid Opioid Risk Tool Age (Paul box if 16-45): No History of Preadolescent Sexual Abuse: No Total: 0 Total Score Risk Category: Low Risk Copyright: Antione YOU predicting aberrant behaviors Diagnosis Discharge Problem: Hypomagnesemia Diarrhea Qualifiers: Diarrhea type: infectious Qualified Code(s): A09 - Infectious gastroenteritis and colitis, unspecified Instructions Instructions: Hypomagnesemia MRSA Infection, Self-Care, Adult Dehydration, Adult, [id number] Abdominal Pain, Adult, [id number] Diarrhea, Adult Gout Managing Your Hypertension Rehydration, Elderly Forms: Precautions for COVID19 [facility] Social Distancing
--- NOTE | 2021-07-21 13:17 | CT ---
HISTORYPT C/O INTERMITTENT DIZZINESS X 3-4 DAYSSTUDYBRAIN W/O [id number] axial images of the head were performed from the skull base to the vertex using standard departmental protocol. Sagittal and coronal reformatted images were performed. Dose reduction techniques including Automated Exposure Control (AEC) and adjustment of mA and kV were utilized.FINDINGSNo evidence of acute territorial infarct. No acute intracranial hemorrhage. No evidence of intracranial mass or midline shift. No hydrocephalus. No abnormal intra or extra-axial fluid collections. Similar chronic small vessel ischemic changes and global volume loss with commensurate ventricular dilatation. Intracranial vascular calcifications.The calvaria is intact. The bilateral mastoid air cells and visualized paranasal sinuses are well pneumatized. The bilateral orbits are unremarkable.IMPRESSIONNo acute intracranial findings.Electronically signed by: EVELIA LOTT (Jul 21, 2021 13:16:34)
[2021-07-21 13:22] LABS: BASOPHILS % (AUTO) 0.8 % (0.2-1.0); EOSINOPHILS # (AUTO) 0.2 x10^3/uL (0.0-0.2); EOSINOPHILS % (AUTO) 2.7 % (0.9-2.9); HEMATOCRIT 38.9 % (42.0-54.0); HEMOGLOBIN 13.1 g/dL (13.5-18.0); LYMPHOCYTES # (AUTO) 1.2 X10^3/uL (1.3-2.9); MEAN CORPUSCULAR HEMOGLOBIN 33.1 pg (27.0-34.0); MEAN CORPUSCULAR HGB CONC 33.7 g/dL (33.0-35.0); MEAN CORPUSCULAR VOLUME 98.4 fL (80.0-100.0); MEAN PLATELET VOLUME 8.1 fL (7.4-11.0); MONOCYTES # (AUTO) 0.6 x10^3/uL (0.3-0.8); MONOCYTES % (AUTO) 10.5 % (0.0-13.0); NEUTROPHILS # (AUTO) 3.9 x10^3/uL (2.2-4.8); RED BLOOD COUNT 3.95 X10^6/uL (4.7-6.0); RED CELL DISTRIBUTION WIDTH 13.6 % (11.6-16.5); WHITE BLOOD COUNT 5.9 X10^3/uL (3.6-10.0)
[2021-07-21 13:40] LABS: ALANINE AMINOTRANSFERASE 32 Units/L (12-78); ALBUMIN 3.5 g/dL (3.4-5.0); ALKALINE PHOSPHATASE 87 Units/L (46-116); ASPARTATE AMINO TRANSFERASE 35 Units/L (15-37); BLOOD UREA NITROGEN 13 mg/dL (7-18); CALCIUM 7.6 mg/dL (8.5-10.1); CARBON DIOXIDE 27.7 mmol/L (21-32); CHLORIDE 106 mmol/L (98-107); COR NA(FOR HYPERGLY) 145 mmol/L (136-145); CREATININE 1.05 mg/dL (0.70-1.30); SODIUM 144 mmol/L (136-145); TOTAL PROTEIN 7.9 g/dL (6.4-8.2); eGFR NON BLACK RACES > 60 (>60)
[2021-07-21] MEDS ORDERED: MAGNESIUM SULFATE 1 GRAM/100 mL PREMIX 1 G/100 ML BAG IV ONE ×2 (14:54→15:50)
[2021-07-21] MEDS: MAGNESIUM SULFATE 1 GRAM/100 mL PREMIX 1 G/100 ML BAG IV SCH ×2 (15:07→15:50)
[2021-07-21] MEDS ORDERED: POTASSIUM CHL 40 MEQ/NS 0.45% 500 ML IV PRN (19:10)
[2021-07-21] MEDS ORDERED: KLOR-CON PO PRN (19:10)
[2021-07-21] MEDS ORDERED: K-RIDER 10 MEQ/NS 100 ML 10 MEQ/100 ML BAG IV PRN (19:10)
[2021-07-21] MEDS ORDERED: POTASSIUM CHL 60 MEQ/NS 0.45% 500 ML IV PRN (19:10)
[2021-07-21] MEDS ORDERED: MICRO K EXTEN CAP 10 MEQ PO PRN (19:10)
[2021-07-21] MEDS ORDERED: POTASSIUM CHLORIDE LIQ 20 MEQ UDC PO PRN (19:10)
[2021-07-21] MEDS: MAGNESIUM SULFATE 1 GRAM/100 mL PREMIX 1 G/100 ML BAG IV PRN ×3 (19:49→23:14)
[2021-07-21] MEDS: K-DUR TAB 20 MEQ PO PRN (19:51)
[2021-07-21] MEDS: NS 1,000 ML IV 1,000 ML IV SCH (19:51)
[2021-07-21 19:57] LABS: CKMB % 1.2 % (<4); CREATINE KINASE MB 1.3 ng/mL (0-4.0)
[2021-07-21] MEDS: RESTORIL CAP 15 MG PO PRN (21:51)
[2021-07-22 01:51] LABS: CKMB % 1.2 % (<4); CREATINE KINASE MB 1.1 ng/mL (0-4.0)
[2021-07-22] MEDS: MAGNESIUM SULFATE 1 GRAM/100 mL PREMIX 1 G/100 ML BAG IV PRN ×5 (02:10→08:08)
[2021-07-22 07:17] LABS: BASOPHILS % (AUTO) 0.9 % (0.2-1.0); EOSINOPHILS # (AUTO) 0.2 x10^3/uL (0.0-0.2); EOSINOPHILS % (AUTO) 4.3 % (0.9-2.9); HEMATOCRIT 36.3 % (42.0-54.0); HEMOGLOBIN 12.3 g/dL (13.5-18.0); LYMPHOCYTES # (AUTO) 0.9 X10^3/uL (1.3-2.9); LYMPHOCYTES % (AUTO) 17.8 % (21.0-51.0); MEAN CORPUSCULAR HEMOGLOBIN 33.2 pg (27.0-34.0); MEAN CORPUSCULAR HGB CONC 33.9 g/dL (33.0-35.0); MONOCYTES # (AUTO) 0.6 x10^3/uL (0.3-0.8); NEUTROPHILS # (AUTO) 3.1 x10^3/uL (2.2-4.8); RED CELL DISTRIBUTION WIDTH 13.9 % (11.6-16.5); WHITE BLOOD COUNT 4.9 X10^3/uL (3.6-10.0)
[2021-07-22 07:23] LABS: ALANINE AMINOTRANSFERASE 26 Units/L (12-78); ALBUMIN 3.1 g/dL (3.4-5.0); ALKALINE PHOSPHATASE 76 Units/L (46-116); ASPARTATE AMINO TRANSFERASE 31 Units/L (15-37); BLOOD UREA NITROGEN 10 mg/dL (7-18); CALCIUM 7.4 mg/dL (8.5-10.1); CARBON DIOXIDE 28.9 mmol/L (21-32); CHLORIDE 107 mmol/L (98-107); COR CA(FOR HYPOALB) 8.1 mg/dL (8.5-10.1); COR NA(FOR HYPERGLY) 143 mmol/L (136-145); CREATININE 0.71 mg/dL (0.70-1.30); SODIUM 143 mmol/L (136-145); eGFR NON BLACK RACES > 60 (>60)
[2021-07-22 07:56] LABS: CKMB % 1.2 % (<4); CREATINE KINASE MB 1.1 ng/mL (0-4.0)
[2021-07-22] MEDS: K-DUR TAB 20 MEQ PO PRN (08:07)
[2021-07-22] MEDS: NS 1,000 ML IV 1,000 ML IV SCH ×3 (09:46→21:18)
[2021-07-22] MEDS: TRICOR TAB 145 MG PO SCH (09:54)
[2021-07-22] MEDS ORDERED: HYDROCHLOROTHIAZIDE 25 MG TAB PO SCH (10:00)
[2021-07-22] MEDS: HYDROCHLOROTHIAZIDE 25 MG TAB PO SCH (11:09)
--- NOTE | 2021-07-22 12:47 | DR.H&P ---
H&P History & Physical for Day of: H&P Date: 07/22/21 Chief Complaint Chief Complaint: generalized weakness, dizziness and diarrhea Allergies Allergies Allergy/AdvReac Type Severity Reaction Status Date / Time amoxicillin Allergy Verified 11/24/20 08:11 Sulfa (Sulfonamide Allergy Verified 11/24/20 08:11 Antibiotics) [SULFA] History of Present Illness History of Present Illness: Mr Lincoln is a 70y/o male with a PMH of HTN, HLD, and GERD presented with worsening diarrhea, feeling dizzy and weakness. He states he had his labs checked last week and was noted to have low K and Mag. He was given outpatient treatment with replacement. He continued to feel worse over the week with weakness, diarrhea and decreased appetite. His recently 2 weeks ago so he has been under a lot of stress. He states he feels slightly better this morning. He was able to eat breakfast earlier. Denies N/V. He states he does not have abdominal pain but does get cramps prior to having diarrhea. He states its watery with no blood. Labs/imaging reviewed Plan: Mg levels normal this morning, replace K as per protocol. Continue IV hydration. Will get KUB. Order stool studies. Monitor electrolytes, replace as needed. Resume home medications. PT/OT as tolerated. Monitor AM labs/imaging. Past Medical History Past Medical History: Dyslipidemia, GERD and Hypertension Past Surgical History Surgical History: Appendectomy Family History Family Medical History: Hypertension Social History Does patient currently use any type of tobacco product: No Have you used tobacco products in the last 12 months: No Type of Tobacco Use: None Does any household member use tobacco: No Alcohol Use: Occasionally Drug Use: None Medications Home Medications: amoxicillin Allergy (Verified 11/24/20 08:11) Sulfa (Sulfonamide Antibiotics) [SULFA] Allergy (Verified 11/24/20 08:11) CONTINUE taking the following medications magnesium oxide 400 mg PO TID 07/21/21 [History] potassium chloride [Klor-Con M20] 20 meq PO DAILY 07/21/21 [History] sucralfate 1 g PO QID 07/21/21 [History] Labs Result Diagrams: 07/22/21 06:59 07/22/21 10:33 Labs: Laboratory WBC 4.9 X10^3/uL (3.6-10.0) 07/22/21 06:59 RBC 3.70 X10^6/uL (4.7-6.0) L 07/22/21 06:59 Hgb 12.3 g/dL (13.5-18.0) L 07/22/21 06:59 Hct 36.3 % (42.0-54.0) L 07/22/21 06:59 MCV 98.0 fL (80.0-100.0) 07/22/21 06:59 MCH 33.2 pg (27.0-34.0) 07/22/21 06:59 MCHC 33.9 g/dL (33.0-35.0) 07/22/21 06:59 RDW 13.9 % (11.6-16.5) 07/22/21 06:59 Plt Count 247 X10^3/uL (150.0-450.0) 07/22/21 06:59 MPV 8.0 fL (7.4-11.0) 07/22/21 06:59 Neut % (Auto) 64.0 % (42.0-75.0) 07/22/21 06:59 Lymph % (Auto) 17.8 % (21.0-51.0) L 07/22/21 06:59 [place] % (Auto) 13.0 % (0.0-13.0) 07/22/21 06:59 Eos % (Auto) 4.3 % (0.9-2.9) H 07/22/21 06:59 Baso % (Auto) 0.9 % (0.2-1.0) 07/22/21 06:59 Neut # (Auto) 3.1 x10^3/uL (2.2-4.8) 07/22/21 06:59 Lymph # (Auto) 0.9 X10^3/uL (1.3-2.9) L 07/22/21 06:59 [place] # (Auto) 0.6 x10^3/uL (0.3-0.8) 07/22/21 06:59 Eos # (Auto) 0.2 x10^3/uL (0.0-0.2) 07/22/21 06:59 Baso # (Auto) 0.0 X10^3/uL (0.0-0.1) 07/22/21 06:59 Absolute Nucleated RBC 0.0 /100WBC 07/22/21 06:59 PT 13.7 SECONDS (11.8-14.3) 07/21/21 13:08 INR Target Range - 07/21/21 13:08 INR 1.11 (0.8-1.3) 07/21/21 13:08 APTT 29.6 SECONDS (22.9-36.5) 07/21/21 13:08 PTT Comment - 07/21/21 13:08 Sodium 143 mmol/L (136-145) 07/22/21 06:59 Corrected Sodium 143 mmol/L (136-145) 07/22/21 06:59 Potassium 3.5 mmol/L (3.5-5.1) 07/22/21 10:33 Chloride 107 mmol/L (98-107) 07/22/21 06:59 Carbon Dioxide 28.9 mmol/L (21-32) 07/22/21 06:59 BUN 10 mg/dL (7-18) 07/22/21 06:59 Creatinine 0.71 mg/dL (0.70-1.30) 07/22/21 06:59 Est GFR (MDRD) Af Amer > 60 (>60) 07/22/21 06:59 Est GFR (MDRD) Non-Af > 60 (>60) 07/22/21 06:59 Glucose 112 mg/dL (65-99) H 07/22/21 06:59 Calcium 7.4 mg/dL (8.5-10.1) L 07/22/21 06:59 Corrected Calcium 8.1 mg/dL (8.5-10.1) L 07/22/21 06:59 Magnesium 2.0 mg/dL (1.7-2.9) 07/22/21 06:59 Total Bilirubin 0.70 mg/dL (0.2-1.0) 07/22/21 06:59 AST 31 Units/L (15-37) 07/22/21 06:59 ALT 26 Units/L (12-78) 07/22/21 06:59 Alkaline Phosphatase 76 Units/L (46-116) 07/22/21 06:59 Creatine Kinase 89 Units/L (39-308) 07/22/21 06:59 CK-MB (CK-2) 1.1 ng/mL (0-4.0) 07/22/21 06:59 CK/CKMB % Calc 1.2 % (<4) 07/22/21 06:59 Troponin I High Sens 9.6 ng/L (4.0-60.0) 07/22/21 06:59 Total Protein 7.0 g/dL (6.4-8.2) 07/22/21 06:59 Albumin 3.1 g/dL (3.4-5.0) L 07/22/21 06:59 Globulin 3.9 g/dL (2.5-4.5) 07/22/21 06:59 Albumin/Globulin Ratio 0.8 Ratio (1.1-2.1) L 07/22/21 06:59 SARS CoV-2 RNA Rapid JAGJIT Negative (NEGATIVE) 07/21/21 17:38 Review of Systems Constitutional: Weakness Eyes: No Symptoms Reported ENT: No Symptoms Reported Respiratory: No Symptoms Reported Cardiovascular: No Symptoms Reported Gastrointestinal: Abdominal Pain and Diarrhea Genitourinary: No Symptoms Reported Musculoskeletal: No Symptoms Reported Skin: No Symptoms Reported Neurological: No Symptoms Reported Physical Exam Vital Signs: Temperature 98.6 F Pulse Rate [Left Radial] 74 Pulse Rate 86 Respiratory Rate 18 Blood Pressure [Right Arm] 136/79 Blood Pressure 141/63 O2 Sat by Pulse Oximetry 94 Oriented: Normal Eyes: Normal Ear: Normal Nose: Normal Throat: Normal Respiratory: Clear Throughout Cardiovascular: Normal Auscultation: Bowel Sounds: Normal Palpation: Normal Tenderness: Normal Skin: Decreased [place] Musculoskeletal: Normal Psychiatric: Anxiety Mood Description: Calm Affect: Normal Speech Pattern: Clear and Appropriate Assessment/Plan (1) Diarrhea: Qualifiers: Diarrhea type: unspecified type Qualified Code(s): R19.7 - Diarrhea, unspecified Status: Acute (2) Hypomagnesemia: Status: Acute (3) Hypokalemia: Status: Acute (4) HTN (hypertension): Qualifiers: Hypertension type: primary hypertension Qualified Code(s): I10 - Essential (primary) hypertension Status: Acute (5) HLD (hyperlipidemia): Qualifiers: Hyperlipidemia type: unspecified Qualified Code(s): E78.5 - Hyperlipidemia, unspecified Status: Acute (6) GERD (gastroesophageal reflux disease): Qualifiers: Esophagitis presence: esophagitis presence not specified Qualified Code(s): K21.9 - Gastro-esophageal reflux disease without esophagitis Status: Acute (7) History of gout: Status: Acute Review H&P Reviewed: Yes Patient was examined?: Yes
[2021-07-22] MEDS ORDERED: ZYLOPRIM PO SCH (13:00)
[2021-07-22] MEDS: CARAFATE PO SCH ×3 (13:20→21:17)
[2021-07-22] MEDS: COLCRYS TAB 0.6 MG PO SCH (15:00)
[2021-07-22] MEDS ORDERED: ZESTRIL TAB 10 MG ONE (16:06)
[2021-07-22] MEDS: ZESTRIL TAB 10 MG PO SCH (16:11)
--- NOTE | 2021-07-22 20:55 | RAD ---
HISTORYabdominal cramps, diarrhea Relevant Clinical InformationSTUDYKUBCOMPARISONNone br.br.br pattern. There is a moderate amount of fecal material throughout the colon. No pathological soft tissue mass or calcification can be observed. The bony structures are grossly intact. Total right hip arthroplasty. Advanced degenerative changes noted in the lumbar spine.IMPRESSIONNo evidence for acute abdominal pathology identified.Electronically signed by: Rene Joyce (Jul 22, 2021 20:53:46)
[2021-07-22] MEDS: CLARITIN PO SCH (21:17)
[2021-07-22] MEDS: CRESTOR TAB 10 MG PO SCH (21:17)
[2021-07-22] MEDS: PROTONIX TAB 40 MG PO SCH (21:17)
[2021-07-22] MEDS: VALIUM PO PRN (22:16)
[2021-07-23 06:19] LABS: BASOPHILS # (AUTO) 0.1 X10^3/uL (0.0-0.1); BASOPHILS % (AUTO) 0.9 % (0.2-1.0); EOSINOPHILS # (AUTO) 0.2 x10^3/uL (0.0-0.2); HEMATOCRIT 39.3 % (42.0-54.0); HEMOGLOBIN 13.4 g/dL (13.5-18.0); LYMPHOCYTES # (AUTO) 1.3 X10^3/uL (1.3-2.9); LYMPHOCYTES % (AUTO) 19.8 % (21.0-51.0); MEAN CORPUSCULAR HEMOGLOBIN 33.7 pg (27.0-34.0); MEAN CORPUSCULAR HGB CONC 34.2 g/dL (33.0-35.0); MEAN CORPUSCULAR VOLUME 98.4 fL (80.0-100.0); MEAN PLATELET VOLUME 8.3 fL (7.4-11.0); MONOCYTES # (AUTO) 0.8 x10^3/uL (0.3-0.8); MONOCYTES % (AUTO) 12.1 % (0.0-13.0); NEUTROPHILS # (AUTO) 4.2 x10^3/uL (2.2-4.8); NEUTROPHILS % (AUTO) 64.2 % (42.0-75.0); RED BLOOD COUNT 3.99 X10^6/uL (4.7-6.0); RED CELL DISTRIBUTION WIDTH 13.8 % (11.6-16.5); WHITE BLOOD COUNT 6.5 X10^3/uL (3.6-10.0)
[2021-07-23 06:30] LABS: BLOOD UREA NITROGEN 8 mg/dL (7-18); CALCIUM 8.3 mg/dL (8.5-10.1); CHLORIDE 104 mmol/L (98-107); CREATININE 0.82 mg/dL (0.70-1.30); SODIUM 140 mmol/L (136-145); eGFR NON BLACK RACES > 60 (>60)
[2021-07-23 06:50] LABS: MAGNESIUM 1.6 mg/dL (1.7-2.9)
[2021-07-23] MEDS: CARAFATE PO SCH ×4 (08:51→21:35)
[2021-07-23] MEDS: TRICOR TAB 145 MG PO SCH (08:51)
[2021-07-23] MEDS: ZESTRIL TAB 10 MG PO SCH (08:51)
[2021-07-23] MEDS: PROTONIX TAB 40 MG PO SCH ×2 (08:51→20:17)
[2021-07-23] MEDS: HYDROCHLOROTHIAZIDE 25 MG TAB PO SCH (08:51)
[2021-07-23] MEDS: COLCRYS TAB 0.6 MG PO SCH (08:51)
[2021-07-23] MEDS: MAGNESIUM SULFATE 1 GRAM/100 mL PREMIX 1 G/100 ML BAG IV PRN ×2 (09:00→09:51)
[2021-07-23] MEDS: NS 1,000 ML IV 1,000 ML IV SCH ×3 (09:51→22:15)
--- NOTE | 2021-07-23 12:40 | PCM.PROG ---
Progress Note Progress Note for Day of Date of Exam: 07/23/21 Subjective Subjective: Patient seen at bedside, no acute events overnight. He states his diarrhea has slowed down. He has been eating well. He denies abdominal pain. He has been ambulating in the room. He does have some dizziness when standing up. Labs/imaging reviewed KUB: moderate amount of stool Plan: Replace Mag as per protocol, 1.6 this morning. Potassium normal. Patient did have a large BM this morning. Follow stool Cx. Continue hydration. Will check orthostatic vitals. Patient on HCTZ that could likely cause low K and Mag. Patient will discuss with Dr Bonilla in the AM to switch to another BP medicine. Monitor AM labs/imaging. Past Medical Family Social History Past Med/Fam/Surg Hx: No changes since H&P Allergies: Allergies amoxicillin Allergy (Verified 11/24/20 08:11) Sulfa (Sulfonamide Antibiotics) [SULFA] Allergy (Verified 11/24/20 08:11) Review of Systems ROS: No change since H&P Vital Signs and I&O's Vital Signs: Temperature 97.8 F Pulse Rate [Left Radial] 65 Pulse Rate 86 Respiratory Rate 20 Blood Pressure [Right Arm] 138/76 Blood Pressure 141/63 O2 Sat by Pulse Oximetry 99 Intake and Output: Intake & Output 07/20/21 07/21/21 07/22/21 07/23/21 23:59 23:59 23:59 23:59 Intake Total 1000 / 1000 2190 / 2190 1040 / 1040 Output Total 300 / 300 1300 / 1300 Balance 700 / 700 890 / 890 1040 / 1040 Physical Exam Oriented: Normal Eyes: Normal Ear: Normal Nose: Normal Throat: Normal Respiratory: Normal Cardiovascular: Normal Auscultation: Bowel Sounds: Normal Tenderness: Normal Skin: Decreased [place] Musculoskeletal: Normal Psychiatric: Normal Mood Description: Calm Affect: Normal Speech Pattern: Clear and Appropriate Laboratory and Diagnostics Result Diagrams: 07/23/21 05:52 07/23/21 05:52 Labs: Laboratory WBC 6.5 X10^3/uL (3.6-10.0) 07/23/21 05:52 RBC 3.99 X10^6/uL (4.7-6.0) L 07/23/21 05:52 Hgb 13.4 g/dL (13.5-18.0) L 07/23/21 05:52 Hct 39.3 % (42.0-54.0) L 07/23/21 05:52 MCV 98.4 fL (80.0-100.0) 07/23/21 05:52 MCH 33.7 pg (27.0-34.0) 07/23/21 05:52 MCHC 34.2 g/dL (33.0-35.0) 07/23/21 05:52 RDW 13.8 % (11.6-16.5) 07/23/21 05:52 Plt Count 329 X10^3/uL (150.0-450.0) 07/23/21 05:52 MPV 8.3 fL (7.4-11.0) 07/23/21 05:52 Neut % (Auto) 64.2 % (42.0-75.0) 07/23/21 05:52 Lymph % (Auto) 19.8 % (21.0-51.0) L 07/23/21 05:52 [place] % (Auto) 12.1 % (0.0-13.0) 07/23/21 05:52 Eos % (Auto) 3.0 % (0.9-2.9) H 07/23/21 05:52 Baso % (Auto) 0.9 % (0.2-1.0) 07/23/21 05:52 Neut # (Auto) 4.2 x10^3/uL (2.2-4.8) 07/23/21 05:52 Lymph # (Auto) 1.3 X10^3/uL (1.3-2.9) 07/23/21 05:52 [place] # (Auto) 0.8 x10^3/uL (0.3-0.8) 07/23/21 05:52 Eos # (Auto) 0.2 x10^3/uL (0.0-0.2) 07/23/21 05:52 Baso # (Auto) 0.1 X10^3/uL (0.0-0.1) 07/23/21 05:52 Absolute Nucleated RBC 0.1 /100WBC 07/23/21 05:52 PT 13.7 SECONDS (11.8-14.3) 07/21/21 13:08 INR Target Range - 07/21/21 13:08 INR 1.11 (0.8-1.3) 07/21/21 13:08 APTT 29.6 SECONDS (22.9-36.5) 07/21/21 13:08 PTT Comment - 07/21/21 13:08 Sodium 140 mmol/L (136-145) 07/23/21 05:52 Corrected Sodium TNP 07/23/21 05:52 Potassium 3.9 mmol/L (3.5-5.1) 07/23/21 05:52 Chloride 104 mmol/L (98-107) 07/23/21 05:52 Carbon Dioxide 26.0 mmol/L (21-32) 07/23/21 05:52 BUN 8 mg/dL (7-18) 07/23/21 05:52 Creatinine 0.82 mg/dL (0.70-1.30) 07/23/21 05:52 Est GFR (MDRD) Af Amer > 60 (>60) 07/23/21 05:52 Est GFR (MDRD) Non-Af > 60 (>60) 07/23/21 05:52 Glucose 104 mg/dL (65-99) H 07/23/21 05:52 Calcium 8.3 mg/dL (8.5-10.1) L 07/23/21 05:52 Corrected Calcium 8.1 mg/dL (8.5-10.1) L 07/22/21 06:59 Magnesium 1.6 mg/dL (1.7-2.9) L 07/23/21 05:52 Total Bilirubin 0.70 mg/dL (0.2-1.0) 07/22/21 06:59 AST 31 Units/L (15-37) 07/22/21 06:59 ALT 26 Units/L (12-78) 07/22/21 06:59 Alkaline Phosphatase 76 Units/L (46-116) 07/22/21 06:59 Creatine Kinase 89 Units/L (39-308) 07/22/21 06:59 CK-MB (CK-2) 1.1 ng/mL (0-4.0) 07/22/21 06:59 CK/CKMB % Calc 1.2 % (<4) 07/22/21 06:59 Troponin I High Sens 9.6 ng/L (4.0-60.0) 07/22/21 06:59 Total Protein 7.0 g/dL (6.4-8.2) 07/22/21 06:59 Albumin 3.1 g/dL (3.4-5.0) L 07/22/21 06:59 Globulin 3.9 g/dL (2.5-4.5) 07/22/21 06:59 Albumin/Globulin Ratio 0.8 Ratio (1.1-2.1) L 07/22/21 06:59 Stool for White Cells Negative (NEGATIVE) 07/23/21 08:05 Stl C. diff Tox B Gene Negative (NEGATIVE) 07/23/21 08:05 Stl C. diff [id number] Presumptive negative (NEGATIVE) 07/23/21 08:05 SARS CoV-2 RNA Rapid JAGJIT Negative (NEGATIVE) 07/21/21 17:38 Plan (1) Diarrhea: Status: Acute Qualifiers: Diarrhea type: unspecified type Qualified Code(s): R19.7 - Diarrhea, unspecified (2) Hypomagnesemia: Status: Acute (3) Hypokalemia: Status: Acute (4) HTN (hypertension): Status: Acute Qualifiers: Hypertension type: primary hypertension Qualified Code(s): I10 - Essential (primary) hypertension (5) HLD (hyperlipidemia): Status: Acute Qualifiers: Hyperlipidemia type: unspecified Qualified Code(s): E78.5 - Hyperl ipidemia, unspecified (6) GERD (gastroesophageal reflux disease): Status: Acute Qualifiers: Esophagitis presence: esophagitis presence not specified Qualified Code(s): K21.9 - Gastro-esophageal reflux disease without esophagitis (7) History of gout: Status: Acute
[2021-07-23] MEDS: RESTORIL CAP 15 MG PO PRN (20:17)
[2021-07-23] MEDS: CLARITIN PO SCH (20:22)
[2021-07-23] MEDS: CRESTOR TAB 10 MG PO SCH (20:22)
[2021-07-23] MEDS: NORCO 5/325 MG TAB PO PRN (21:04)
[2021-07-24] MEDS: VALIUM PO PRN ×2 (01:11→21:05)
[2021-07-24 06:20] LABS: EOSINOPHILS # (AUTO) 0.2 x10^3/uL (0.0-0.2); EOSINOPHILS % (AUTO) 5.8 % (0.9-2.9); HEMATOCRIT 36.4 % (42.0-54.0); HEMOGLOBIN 12.3 g/dL (13.5-18.0); LYMPHOCYTES # (AUTO) 1.2 X10^3/uL (1.3-2.9); LYMPHOCYTES % (AUTO) 28.6 % (21.0-51.0); MEAN CORPUSCULAR HEMOGLOBIN 33.4 pg (27.0-34.0); MEAN CORPUSCULAR HGB CONC 33.7 g/dL (33.0-35.0); MEAN PLATELET VOLUME 8.2 fL (7.4-11.0); MONOCYTES # (AUTO) 0.6 x10^3/uL (0.3-0.8); MONOCYTES % (AUTO) 13.5 % (0.0-13.0); NEUTROPHILS # (AUTO) 2.1 x10^3/uL (2.2-4.8); NEUTROPHILS % (AUTO) 51.1 % (42.0-75.0); RED BLOOD COUNT 3.68 X10^6/uL (4.7-6.0); WHITE BLOOD COUNT 4.2 X10^3/uL (3.6-10.0)
[2021-07-24 06:40] LABS: BLOOD UREA NITROGEN 6 mg/dL (7-18); CARBON DIOXIDE 27.1 mmol/L (21-32); CHLORIDE 106 mmol/L (98-107); CREATININE 0.73 mg/dL (0.70-1.30); SODIUM 141 mmol/L (136-145); eGFR NON BLACK RACES > 60 (>60)
[2021-07-24] MEDS: K-DUR TAB 20 MEQ PO PRN (08:37)
[2021-07-24] MEDS: PROTONIX TAB 40 MG PO SCH ×2 (08:38→20:53)
[2021-07-24] MEDS: CARAFATE PO SCH ×4 (08:38→20:54)
[2021-07-24] MEDS: TRICOR TAB 145 MG PO SCH (08:38)
[2021-07-24] MEDS: COLCRYS TAB 0.6 MG PO SCH ×3 (08:38→20:53)
[2021-07-24] MEDS: ZESTRIL TAB 10 MG PO SCH (08:38)
[2021-07-24] MEDS: ZYLOPRIM PO SCH (08:39)
[2021-07-24 08:53] LABS: MAGNESIUM 1.5 mg/dL (1.7-2.9)
[2021-07-24] MEDS: MAGNESIUM SULFATE 1 GRAM/100 mL PREMIX 1 G/100 ML BAG IV PRN ×2 (09:06→10:10)
[2021-07-24] MEDS: NS 1,000 ML IV 1,000 ML IV SCH ×3 (09:06→23:20)
[2021-07-24 09:51] VITALS: BMI 27.5
[2021-07-24] MEDS: TORADOL 30 MG VIAL IVP SCH ×2 (10:10→17:31)
--- NOTE | 2021-07-24 10:55 | PCM.PROG ---
Progress Note - Progress Note for Day of Date of Exam: 07/24/21 - Subjective Subjective: WAS ADMITTED FOR TREATMENT OF DEHYDRATION, HYPOMAGNESEMIA, HYPOKALEMIA, INTRACTABLE DIARRHEA. HE HAS A PMH OF HTN, HLD, GERD, AND GOUT. TODAY, HE IS ALERT AND ORIENTED, WALKING AROUND THE ROOM ON MORNING ROUNDS. HE CONTINUES WITH COMPLAINTS OF GENERALIZED WEAKNESS THIS MORNING AND DIZZINESS AT TIMES. DIARRHEA HAS DECREASED. HE DOES ADMIT TO RIGHT HAND PAIN, LIKELY FROM GOUT. ON EXAMINATION, HEART IS REGULAR IN RATE AND RHYTHM. BILATERAL LUNGS NOTED WITH DIMINISHED LUNG SOUNDS THROUGHOUT. ABDOMEN IS ROUND, SOFT, AND NON-TENDER WITH HYPERACTIVE BOWEL SOUNDS NOTED. RIGHT HAND IS NOTED WITH REDNESS AND SWELLING. HIS VITALS THIS MORNING ARE: 98.3-83-20-98%-141/78. LABS WERE OBTAIN ED. ABNORMAL LAB VALUES INCLUDE THE FOLLOWING: RBC 3.68, HGB 12.3, HCT 36.4, BUN 6, CALCIUM 8.0, MAGNESIUM 1.5. STOOL CULTURE IS PENDING. HE IS CURRENTLY RECEIVING NORMAL SALINE AT 80 ML/HR, THE POTASSIUM AND MAGNESIUM PROTOCOLS, NORCO 5/325MG PO Q6H PRN, RESTORIL 15MG PO HS PRN, AND HIS HOME MEDICATIONS OF ZYLOPRIM, COLCRYS, VALIUM, TRICOR, ZESTRIL, CLARITIN, PROTONIX, CRESTOR, AND CARAFATE WERE RESUMED. TODAY, WE WILL INCREASE THE COLCRYS TO 0.6MG PO BID AND ADD TORADOL 30MG IV Q8H. WE WILL REPLACE HIS MAGNESIUM PER THE PROTOCOL. OTHERWISE, WE PLAN TO FOLLOW UP WITH AM LABS AND CONTINUE TO MONITOR. TIME SPENT ON CLINICAL ASSESSMENT, REVIEWING LABS AND IMAGING, DECISION MAKING, AND DOCUMENTATION WAS GREATER THAN 45 MINUTES. - Past Medical Family Social History Past Med/Fam/Surg Hx: No changes since H&P Allergies: Allergies amoxicillin Allergy (Verified 11/24/20 08:11) Sulfa (Sulfonamide Antibiotics) [SULFA] Allergy (Verified 11/24/20 08:11) - Review of Systems ROS: No change since H&P - Vital Signs and I&O's Vital Signs: Temperature 98.3 F Pulse Rate [Right Brachial] 83 Pulse Rate [Left Radial] 80 Pulse Rate 86 Respiratory Rate 20 Blood Pressure [Right Arm] 141/78 Blood Pressure 141/63 O2 Sat by Pulse Oximetry 98 Intake and Output: Intake & Output 07/21/21 07/22/21 07/23/21 07/24/21 11:59 11:59 11:59 11:59 Intake Total 1250 / 1250 2980 / 2980 7561 / 7561 Output Total 600 / 600 1000 / 1000 1575 / 1575 Balance 650 / 650 1979 / 1979 5986 / 5986 - Physical Exam Oriented: Normal Eyes: Normal Ear: Normal Nose: Normal Throat: Normal Respiratory: Normal Cardiovascular: Normal Auscultation: Bowel Sounds: Normal Palpation: Normal Tenderness: Normal Skin: Decreased [place] Musculoskeletal: Normal Psychiatric: Normal Mood Description: Calm Affect: Normal Speech Pattern: Clear, Appropriate - Laboratory and Diagnostics Result Diagrams: 07/24/21 05:25 07/24/21 05:25 Labs: 07/23/21 08:05 Stool - Final Laboratory WBC 4.2 X10^3/uL (3.6-10.0) 07/24/21 05:25 RBC 3.68 X10^6/uL (4.7-6.0) L 07/24/21 05:25 Hgb 12.3 g/dL (13.5-18.0) L 07/24/21 05:25 Hct 36.4 % (42.0-54.0) L 07/24/21 05:25 MCV 99.0 fL (80.0-100.0) 07/24/21 05:25 MCH 33.4 pg (27.0-34.0) 07/24/21 05:25 MCHC 33.7 g/dL (33.0-35.0) 07/24/21 05:25 RDW 14.0 % (11.6-16.5) 07/24/21 05:25 Plt Count 259 X10^3/uL (150.0-450.0) 07/24/21 05:25 MPV 8.2 fL (7.4-11.0) 07/24/21 05:25 Neut % (Auto) 51.1 % (42.0-75.0) 07/24/21 05:25 Lymph % (Auto) 28.6 % (21.0-51.0) 07/24/21 05:25 [place] % (Auto) 13.5 % (0.0-13.0) H 07/24/21 05:25 Eos % (Auto) 5.8 % (0.9-2.9) H 07/24/21 05:25 Baso % (Auto) 1.0 % (0.2-1.0) 07/24/21 05:25 Neut # (Auto) 2.1 x10^3/uL (2.2-4.8) L 07/24/21 05:25 Lymph # (Auto) 1.2 X10^3/uL (1.3-2.9) L 07/24/21 05:25 [place] # (Auto) 0.6 x10^3/uL (0.3-0.8) 07/24/21 05:25 Eos # (Auto) 0.2 x10^3/uL (0.0-0.2) 07/24/21 05:25 Baso # (Auto) 0.0 X10^3/uL (0.0-0.1) 07/24/21 05:25 Absolute Nucleated RBC 0.1 /100WBC 07/24/21 05:25 PT 13.7 SECONDS (11.8-14.3) 07/21/21 13:08 INR Target Range - 07/21/21 13:08 INR 1.11 (0.8-1.3) 07/21/21 13:08 APTT 29.6 SECONDS (22.9-36.5) 07/21/21 13:08 PTT Comment - 07/21/21 13:08 Sodium 141 mmol/L (136-145) 07/24/21 05:25 Corrected Sodium TNP 07/24/21 05:25 Potassium 3.5 mmol/L (3.5-5.1) 07/24/21 05:25 Chloride 106 mmol/L (98-107) 07/24/21 05:25 Carbon Dioxide 27.1 mmol/L (21-32) 07/24/21 05:25 BUN 6 mg/dL (7-18) L 07/24/21 05:25 Creatinine 0.73 mg/dL (0.70-1.30) 07/24/21 05:25 Est GFR (MDRD) Af Amer > 60 (>60) 07/24/21 05:25 Est GFR (MDRD) Non-Af > 60 (>60) 07/24/21 05:25 Glucose 98 mg/dL (65-99) 07/24/21 05:25 Calcium 8.0 mg/dL (8.5-10.1) L 07/24/21 05:25 Corrected Calcium 8.1 mg/dL (8.5-10.1) L 07/22/21 06:59 Magnesium 1.5 mg/dL (1.7-2.9) L 07/24/21 05:25 Total Bilirubin 0.70 mg/dL (0.2-1.0) 07/22/21 06:59 AST 31 Units/L (15-37) 07/22/21 06:59 ALT 26 Units/L (12-78) 07/22/21 06:59 Alkaline Phosphatase 76 Units/L (46-116) 07/22/21 06:59 Creatine Kinase 89 Units/L (39-308) 07/22/21 06:59 CK-MB (CK-2) 1.1 ng/mL (0-4.0) 07/22/21 06:59 CK/CKMB % Calc 1.2 % (<4) 07/22/21 06:59 Troponin I High Sens 9.6 ng/L (4.0-60.0) 07/22/21 06:59 Total Protein 7.0 g/dL (6.4-8.2) 07/22/21 06:59 Albumin 3.1 g/dL (3.4-5.0) L 07/22/21 06:59 Globulin 3.9 g/dL (2.5-4.5) 07/22/21 06:59 Albumin/Globulin Ratio 0.8 Ratio (1.1-2.1) L 07/22/21 06:59 Stool for White Cells Negative (NEGATIVE) 07/23/21 08:05 Stl C. diff Tox B Gene Negative (NEGATIVE) 07/23/21 08:05 Stl C. diff [id number] Presumptive negative (NEGATIVE) 07/23/21 08:05 SARS CoV-2 RNA Rapid JAGJIT Negative (NEGATIVE) 07/21/21 17:38 - Plan (1) Dehydration Status: Acute (2) Hypomagnesemia Status: Acute (3) Hypokalemia Status: Acute (4) Diarrhea Status: Acute Qualifiers: Diarrhea type: unspecified type Qualified Code(s): R19.7 - Diarrhea, unspecified (5) GERD (gastroesophageal reflux disease) Status: Chronic Qualifiers: Esophagitis presence: esophagitis presence not specified Qualified Code(s): K21.9 - Gastro-esophageal reflux disease without esophagitis (6) HLD (hyperlipidemia) Status: Chronic Qualifiers: Hyperlipidemia type: mixed hyperlipidemia Qualified Code(s): E78.2 - Mixed hyperlipidemia (7) HTN (hypertension) Status: Chronic Qualifiers: Hypertension type: primary hypertension Qualified Code(s): I10 - Essential (primary) hypertension
[2021-07-24 11:46] LABS: ALANINE AMINOTRANSFERASE 33 Units/L (12-78); ALBUMIN 3.1 g/dL (3.4-5.0); ALKALINE PHOSPHATASE 94 Units/L (46-116); ASPARTATE AMINO TRANSFERASE 34 Units/L (15-37); COR CA(FOR HYPOALB) 8.7 mg/dL (8.5-10.1); TOTAL PROTEIN 7.1 g/dL (6.4-8.2)
[2021-07-24] MEDS: CRESTOR TAB 10 MG PO SCH (20:53)
[2021-07-24] MEDS: CLARITIN PO SCH (20:53)
[2021-07-24] MEDS: NORCO 5/325 MG TAB PO PRN (21:01)
[2021-07-24] MEDS: RESTORIL CAP 15 MG PO PRN (23:20)
[2021-07-25] MEDS: TORADOL 30 MG VIAL IVP SCH ×3 (02:58→17:22)
[2021-07-25] MEDS: NS 1,000 ML IV 1,000 ML IV SCH ×2 (04:13→13:39)
[2021-07-25 06:10] LABS: BASOPHILS % (AUTO) 1.1 % (0.2-1.0); EOSINOPHILS # (AUTO) 0.2 x10^3/uL (0.0-0.2); EOSINOPHILS % (AUTO) 5.6 % (0.9-2.9); HEMATOCRIT 33.3 % (42.0-54.0); HEMOGLOBIN 11.2 g/dL (13.5-18.0); LYMPHOCYTES # (AUTO) 1.2 X10^3/uL (1.3-2.9); LYMPHOCYTES % (AUTO) 33.3 % (21.0-51.0); MEAN CORPUSCULAR HEMOGLOBIN 33.4 pg (27.0-34.0); MEAN CORPUSCULAR HGB CONC 33.7 g/dL (33.0-35.0); MEAN CORPUSCULAR VOLUME 99.1 fL (80.0-100.0); MEAN PLATELET VOLUME 8.5 fL (7.4-11.0); MONOCYTES # (AUTO) 0.5 x10^3/uL (0.3-0.8); MONOCYTES % (AUTO) 14.1 % (0.0-13.0); NEUTROPHILS # (AUTO) 1.6 x10^3/uL (2.2-4.8); NEUTROPHILS % (AUTO) 45.9 % (42.0-75.0); RED BLOOD COUNT 3.36 X10^6/uL (4.7-6.0); RED CELL DISTRIBUTION WIDTH 14.1 % (11.6-16.5); WHITE BLOOD COUNT 3.6 X10^3/uL (3.6-10.0)
[2021-07-25 06:17] LABS: ALANINE AMINOTRANSFERASE 30 Units/L (12-78); ALBUMIN 2.7 g/dL (3.4-5.0); ALKALINE PHOSPHATASE 97 Units/L (46-116); ASPARTATE AMINO TRANSFERASE 33 Units/L (15-37); BLOOD UREA NITROGEN 11 mg/dL (7-18); CALCIUM 8.2 mg/dL (8.5-10.1); CARBON DIOXIDE 28.2 mmol/L (21-32); CHLORIDE 112 mmol/L (98-107); COR CA(FOR HYPOALB) 9.2 mg/dL (8.5-10.1); CREATININE 0.72 mg/dL (0.70-1.30); MAGNESIUM 1.3 mg/dL (1.7-2.9); SODIUM 146 mmol/L (136-145); TOTAL PROTEIN 6.4 g/dL (6.4-8.2); eGFR NON BLACK RACES > 60 (>60)
[2021-07-25] MEDS: MAGNESIUM SULFATE 1 GRAM/100 mL PREMIX 1 G/100 ML BAG IV PRN ×4 (06:30→11:48)
[2021-07-25] MEDS: CARAFATE PO SCH ×4 (08:11→20:31)
[2021-07-25] MEDS: ZYLOPRIM PO SCH (08:12)
[2021-07-25] MEDS: TRICOR TAB 145 MG PO SCH (08:12)
[2021-07-25] MEDS: PROTONIX TAB 40 MG PO SCH (08:13)
[2021-07-25] MEDS: COLCRYS TAB 0.6 MG PO SCH ×2 (08:13→20:33)
[2021-07-25] MEDS: ZESTRIL TAB 10 MG PO SCH (08:13)
[2021-07-25] MEDS ORDERED: PHARMACY CONSULT - VANCOMYCIN XX SCH (10:00)
--- NOTE | 2021-07-25 10:18 | PCM.PROG ---
Progress Note - Progress Note for Day of Date of Exam: 07/25/21 - Subjective Subjective: WAS ADMITTED FOR TREATMENT OF DEHYDRATION, HYPOMAGNESEMIA, HYPOKALEMIA, INTRACTABLE DIARRHEA. HE HAS A PMH OF HTN, HLD, GERD, AND GOUT. TODAY, HE IS ALERT AND ORIENTED, WALKING AROUND THE ROOM ON MORNING ROUNDS. HE CONTINUES WITH COMPLAINTS OF GENERALIZED WEAKNESS THIS MORNING AND DIZZINESS AT TIMES. DIARRHEA HAS DECREASED. HAND PAIN FROM GOUT HAS IMPROVED TODAY. ON EXAMINATION, HEART IS REGULAR IN RATE AND RHYTHM. BILATERAL LUNGS NOTED WITH DIMINISHED LUNG SOUNDS THROUGHOUT. ABDOMEN IS ROUND, SOFT, AND NON-TENDER WITH HYPERACTIVE BOWEL SOUNDS NOTED. HIS VITALS THIS MORNING ARE: 98.1-79-20-98%-136/71. LABS WERE OBTAINED. ABNORMAL LAB VALUES INCLUDE THE FOLLOWING: RBC 3.36, HGB 11.2, HCT 33.3, SODIUM 146, CHLORIDE 112, CALCIUM 8.2, MAGNESIUM 1.3, ALBUMIN 2.7. STOOL CULTURE IS POSITIVE FOR GROWTH OF MRSA. HE IS CURRENTLY RECEIVING NORMAL SALINE AT 80 ML/HR, THE POTASSIUM AND MAGNESIUM PROTOCOLS, NORCO 5/325MG PO Q6H PRN, TORADOL 30MG IV Q8H, RESTORIL 15MG PO HS PRN, AND HIS HOME MEDICATIONS OF ZYLOPRIM, COLCRYS, VALIUM, TRICOR, ZESTRIL, CLARITIN, PROTONIX, CRESTOR, AND CARAFATE WERE RESUMED. WE WILL REPLACE HIS MAGNESIUM PER THE PROTOCOL. TODAY, WE WILL ADD VANCOMYCIN (PHARMACY TO DOSE) AND MAG OX 400MG PO BID. OTHERWISE, WE PLAN TO FOLLOW UP WITH AM LABS AND CONTINUE TO MONITOR. TIME SPENT ON CLINICAL ASSESSMENT, REVIEWING LABS AND IMAGING, DECISION MAKING, AND DOCUMENTATION WAS GREATER THAN 45 MINUTES. - Past Medical Family Social History Past Med/Fam/Surg Hx: No changes since H&P Allergies: Allergies amoxicillin Allergy (Verified 11/24/20 08:11) Sulfa (Sulfonamide Antibiotics) [SULFA] Allergy (Verified 11/24/20 08:11) - Review of Systems ROS: No change since H&P - Vital Signs and I&O's Vital Signs: Temperature 98.1 F Pulse Rate [Right Brachial] 67 Pulse Rate [Left Radial] 79 Pulse Rate 86 Respiratory Rate 20 Blood Pressure [Left Arm] 136/71 Blood Pressure [Right Arm] 142/81 Blood Pressure 141/63 O2 Sat by Pulse Oximetry 98 Intake and Output: Intake & Output 07/22/21 07/23/21 07/24/21 07/25/21 11:59 11:59 11:59 11:59 Intake Total 1250 / 1250 2980 / 2980 7561 / 7561 5281 / 5281 Output Total 600 / 600 1000 / 1000 1575 / 1575 Balance 650 / 650 1979 / 1979 5986 / 5986 5281 / 5281 - Physical Exam Oriented: Normal Eyes: Normal Ear: Normal Nose: Normal Throat: Normal Respiratory: Normal Cardiovascular: Normal Auscultation: Bowel Sounds: Normal Palpation: Normal Tenderness: Normal Skin: Decreased Turgur Musculoskeletal: Normal Psychiatric: Normal Mood Description: Calm Affect: Normal Speech Pattern: Clear, Appropriate - Laboratory and Diagnostics Result Diagrams: 07/25/21 05:21 07/25/21 05:21 Labs: 07/23/21 08:05 Stool Stool Culture - Final Methicillin Resis Staph Aureus 07/23/21 08:05 Stool - Final Laboratory WBC 3.6 X10^3/uL (3.6-10.0) 07/25/21 05:21 RBC 3.36 X10^6/uL (4.7-6.0) L 07/25/21 05:21 Hgb 11.2 g/dL (13.5-18.0) L 07/25/21 05:21 Hct 33.3 % (42.0-54.0) L 07/25/21 05:21 MCV 99.1 fL (80.0-100.0) 07/25/21 05:21 MCH 33.4 pg (27.0-34.0) 07/25/21 05:21 MCHC 33.7 g/dL (33.0-35.0) 07/25/21 05:21 RDW 14.1 % (11.6-16.5) 07/25/21 05:21 Plt Count 238 X10^3/uL (150.0-450.0) 07/25/21 05:21 MPV 8.5 fL (7.4-11.0) 07/25/21 05:21 Neut % (Auto) 45.9 % (42.0-75.0) 07/25/21 05:21 Lymph % (Auto) 33.3 % (21.0-51.0) 07/25/21 05:21 Emanuel % (Auto) 14.1 % (0.0-13.0) H 07/25/21 05:21 Eos % (Auto) 5.6 % (0.9-2.9) H 07/25/21 05:21 Baso % (Auto) 1.1 % (0.2-1.0) H 07/25/21 05:21 Neut # (Auto) 1.6 x10^3/uL (2.2-4.8) L 07/25/21 05:21 Lymph # (Auto) 1.2 X10^3/uL (1.3-2.9) L 07/25/21 05:21 Emanuel # (Auto) 0.5 x10^3/uL (0.3-0.8) 07/25/21 05:21 Eos # (Auto) 0.2 x10^3/uL (0.0-0.2) 07/25/21 05:21 Baso # (Auto) 0.0 X10^3/uL (0.0-0.1) 07/25/21 05:21 Absolute Nucleated RBC 0.2 /100WBC 07/25/21 05:21 PT 13.7 SECONDS (11.8-14.3) 07/21/21 13:08 INR Target Range - 07/21/21 13:08 INR 1.11 (0.8-1.3) 07/21/21 13:08 APTT 29.6 SECONDS (22.9-36.5) 07/21/21 13:08 PTT Comment - 07/21/21 13:08 Sodium 146 mmol/L (136-145) H 07/25/21 05:21 Corrected Sodium TNP 07/25/21 05:21 Potassium 4.4 mmol/L (3.5-5.1) 07/25/21 05:21 Chloride 112 mmol/L (98-107) H 07/25/21 05:21 Carbon Dioxide 28.2 mmol/L (21-32) 07/25/21 05:21 BUN 11 mg/dL (7-18) 07/25/21 05:21 Creatinine 0.72 mg/dL (0.70-1.30) 07/25/21 05:21 Est GFR (MDRD) Af Amer > 60 (>60) 07/25/21 05:21 Est GFR (MDRD) Non-Af > 60 (>60) 07/25/21 05:21 Glucose 95 mg/dL (65-99) 07/25/21 05:21 Calcium 8.2 mg/dL (8.5-10.1) L 07/25/21 05:21 Corrected Calcium 9.2 mg/dL (8.5-10.1) 07/25/21 05:21 Magnesium 1.3 mg/dL (1.7-2.9) L 07/25/21 05:21 Total Bilirubin 0.50 mg/dL (0.2-1.0) 07/25/21 05:21 AST 33 Units/L (15-37) 07/25/21 05:21 ALT 30 Units/L (12-78) 07/25/21 05:21 Alkaline Phosphatase 97 Units/L (46-116) 07/25/21 05:21 Creatine Kinase 89 Units/L (39-308) 07/22/21 06:59 CK-MB (CK-2) 1.1 ng/mL (0-4.0) 07/22/21 06:59 CK/CKMB % Calc 1.2 % (<4) 07/22/21 06:59 Troponin I High Sens 9.6 ng/L (4.0-60.0) 07/22/21 06:59 Total Protein 6.4 g/dL (6.4-8.2) 07/25/21 05:21 Albumin 2.7 g/dL (3.4-5.0) L 07/25/21 05:21 Globulin 3.7 g/dL (2.5-4.5) 07/25/21 05:21 Albumin/Globulin Ratio 0.7 Ratio (1.1-2.1) L 07/25/21 05:21 Stool for White Cells Negative (NEGATIVE) 07/23/21 08:05 Stl C. diff Tox B Gene Negative (NEGATIVE) 07/23/21 08:05 Stl C. diff [id number] Presumptive negative (NEGATIVE) 07/23/21 08:05 SARS CoV-2 RNA Rapid JAGJIT Negative (NEGATIVE) 07/21/21 17:38 - Plan (1) MRSA infection Status: Acute Plan: IV FLUIDS, IV VANCOMYCIN, POTASSIUM AND MAGNESIUM PROTOCOLS, MAG OX BID, TORADOL 30MG IV Q8H, RESUME HOME MEDS (2) Diarrhea Status: Acute Qualifiers: Diarrhea type: infectious Qualified Code(s): A09 - Infectious gastroenteritis and colitis, unspecified (3) Dehydration Status: Acute (4) Hypomagnesemia Status: Acute (5) Hypokalemia Status: Acute (6) GERD (gastroesophageal reflux disease) Status: Chronic Qualifiers: Esophagitis presence: esophagitis presence not specified Qualified Code(s): K21.9 - Gastro-esophageal reflux disease without esophagitis (7) HLD (hyperlipidemia) Status: Chronic Qualifiers: Hyperlipidemia type: mixed hyperlipidemia Qualified Code(s): E78.2 - Mixed hyperlipidemia (8) HTN (hypertension) Status: Chronic Qualifiers: Hypertension type: primary hypertension Qualified Code(s): I10 - Essential (primary) hypertension
[2021-07-25] MEDS: VANCOMYCIN IV *PREMIX 1.25 G/250 ML BAG 1.25 G/250 ML PIGGYBACK IV SCH ×2 (10:36→20:29)
[2021-07-25] MEDS: ASPIRIN 81 MG CHEWTAB PO SCH (12:54)
[2021-07-25] MEDS: MAG-OX TAB PO SCH (16:08)
[2021-07-25] MEDS: CRESTOR TAB 10 MG PO SCH (20:31)
[2021-07-25] MEDS: CLARITIN PO SCH (20:31)
[2021-07-25] MEDS: NORCO 5/325 MG TAB PO PRN (20:35)
[2021-07-25] MEDS: RESTORIL CAP 15 MG PO PRN (20:36)
[2021-07-25] MEDS: VALIUM PO PRN (22:03)
[2021-07-26] MEDS: TORADOL 30 MG VIAL IVP SCH ×3 (02:00→17:03)
[2021-07-26] MEDS: NS 1,000 ML IV 1,000 ML IV SCH ×2 (03:35→16:24)
[2021-07-26] MEDS: MAG-OX TAB PO SCH ×2 (06:02→17:03)
[2021-07-26 06:26] LABS: BASOPHILS % (AUTO) 1.3 % (0.2-1.0); EOSINOPHILS # (AUTO) 0.2 x10^3/uL (0.0-0.2); EOSINOPHILS % (AUTO) 5.3 % (0.9-2.9); HEMATOCRIT 34.5 % (42.0-54.0); HEMOGLOBIN 11.6 g/dL (13.5-18.0); LYMPHOCYTES # (AUTO) 1.2 X10^3/uL (1.3-2.9); LYMPHOCYTES % (AUTO) 33.6 % (21.0-51.0); MEAN CORPUSCULAR HEMOGLOBIN 33.2 pg (27.0-34.0); MEAN CORPUSCULAR HGB CONC 33.7 g/dL (33.0-35.0); MEAN CORPUSCULAR VOLUME 98.5 fL (80.0-100.0); MEAN PLATELET VOLUME 8.2 fL (7.4-11.0); MONOCYTES # (AUTO) 0.4 x10^3/uL (0.3-0.8); MONOCYTES % (AUTO) 12.8 % (0.0-13.0); NEUTROPHILS # (AUTO) 1.6 x10^3/uL (2.2-4.8); RED CELL DISTRIBUTION WIDTH 13.8 % (11.6-16.5); WHITE BLOOD COUNT 3.5 X10^3/uL (3.6-10.0)
[2021-07-26 06:38] LABS: ALANINE AMINOTRANSFERASE 40 Units/L (12-78); ALBUMIN 3.3 g/dL (3.4-5.0); ALKALINE PHOSPHATASE 125 Units/L (46-116); ASPARTATE AMINO TRANSFERASE 45 Units/L (15-37); BLOOD UREA NITROGEN 12 mg/dL (7-18); CALCIUM 8.2 mg/dL (8.5-10.1); CARBON DIOXIDE 29.8 mmol/L (21-32); CHLORIDE 110 mmol/L (98-107); COR CA(FOR HYPOALB) 8.8 mg/dL (8.5-10.1); CREATININE 0.78 mg/dL (0.70-1.30); MAGNESIUM 1.6 mg/dL (1.7-2.9); SODIUM 146 mmol/L (136-145); TOTAL PROTEIN 7.4 g/dL (6.4-8.2); eGFR NON BLACK RACES > 60 (>60)
[2021-07-26] MEDS: CARAFATE PO SCH (08:21)
[2021-07-26] MEDS: ZESTRIL TAB 10 MG PO SCH (08:25)
[2021-07-26] MEDS: ASPIRIN 81 MG CHEWTAB PO SCH (08:25)
[2021-07-26] MEDS: COLCRYS TAB 0.6 MG PO SCH ×2 (08:25→20:26)
[2021-07-26] MEDS: TRICOR TAB 145 MG PO SCH (08:26)
[2021-07-26] MEDS: VANCOMYCIN IV *PREMIX 1.25 G/250 ML BAG 1.25 G/250 ML PIGGYBACK IV SCH ×2 (08:26→21:46)
[2021-07-26] MEDS: ZYLOPRIM PO SCH (08:26)
[2021-07-26] MEDS: PEPCID TAB 40 MG PO SCH ×2 (09:06→20:26)
--- NOTE | 2021-07-26 09:43 | PCM.PROG ---
Progress Note - Progress Note for Day of Date of Exam: 07/26/21 - Subjective Subjective: WAS ADMITTED FOR TREATMENT OF DEHYDRATION, HYPOMAGNESEMIA, HYPOKALEMIA, INTRACTABLE DIARRHEA, AND MRSA IN STOOL. HE HAS A PMH OF HTN, HLD, GERD, AND GOUT. TODAY, HE IS ALERT AND ORIENTED, WALKING AROUND THE ROOM ON MORNING ROUNDS. HE CONTINUES WITH COMPLAINTS OF GENERALIZED WEAKNESS THIS MORNING AND DIZZINESS AT TIMES. ON EXAMINATION, HEART IS REGULAR IN RATE AND RHYTHM. BILATERAL LUNGS NOTED WITH DIMINISHED LUNG SOUNDS THROUGHOUT. ABDOMEN IS ROUND, SOFT, AND NON-TENDER WITH HYPERACTIVE BOWEL SOUNDS NOTED. HIS VITALS THIS MORNING ARE: 97.5-81-22-97%-164/83. LABS WERE OBTAINED. ABNORMAL LAB VALUES INCLUDE THE FOLLOWING: WBC 3.5, RBC 3.50, HGB 11.6, HCT 34.5, SODIUM 146, CHLORI DE 110, CALCIUM 8.2, MAGNESIUM 1.6, AST 45, ALK PHOS 125, ALBUMIN 3.3. STOOL CULTURE IS POSITIVE FOR GROWTH OF MRSA. HE IS CURRENTLY RECEIVING NORMAL SALINE AT 80 ML/HR, THE POTASSIUM AND MAGNESIUM PROTOCOLS, NORCO 5/325MG PO Q6H PRN, TORADOL 30MG IV Q8H, VANCOMYCIN 1.25G IV Q12H, MAG OX 400MG PO BID, RESTORIL 15MG PO HS PRN, AND HIS HOME MEDICATIONS OF ZYLOPRIM, COLCRYS, VALIUM, TRICOR, ZESTRIL, CLARITIN, PROTONIX, CRESTOR, AND CARAFATE WERE RESUMED. WE WILL REPLACE HIS MAGNESIUM PER THE PROTOCOL. TODAY, WE WILL DISCONTINUE THE ZYLOPRIM AND PROTONIX, THESE COULD BE THE CAUSES OF PERSISTENT HYPOKALEMIA. OTHERWISE, WE PLAN TO FOLLOW UP WITH AM LABS AND CONTINUE TO MONITOR. TIME SPENT ON CLINICAL ASSESSMENT, REVIEWING LABS AND IMAGING, DECISION MAKING, AND DOCUMENTATION WAS GREATER THAN 45 MINUTES. - Past Medical Family Social History Past Med/Fam/Surg Hx: No changes since H&P Allergies: Allergies amoxicillin Allergy (Verified 11/24/20 08:11) Sulfa (Sulfonamide Antibiotics) [SULFA] Allergy (Verified 11/24/20 08:11) - Review of Systems ROS: No change since H&P - Vital Signs and I&O's Vital Signs: Temperature 97.5 F Pulse Rate [Right Brachial] 67 Pulse Rate [Left Radial] 81 Pulse Rate 86 Respiratory Rate 22 Blood Pressure [Left Arm] 164/83 Blood Pressure [Right Arm] 142/81 Blood Pressure 141/63 O2 Sat by Pulse Oximetry 97 Intake and Output: Intake & Output 07/23/21 07/24/21 07/25/21 07/26/21 11:59 11:59 11:59 11:59 Intake Total 2980 / 2980 7561 / 7561 5281 / 5281 4788 / 4788 Output Total 1000 / 1000 1575 / 1575 Balance 1979 / 1979 5986 / 5986 5281 / 5281 4788 / 4788 - Physical Exam Oriented: Normal Eyes: Normal Ear: Normal Nose: Normal Throat: Normal Respiratory: Normal Cardiovascular: Normal Auscultation: Bowel Sounds: Normal Tenderness: Normal Skin: Decreased Turgur Musculoskeletal: Normal Psychiatric: Normal Mood Description: Calm Affect: Normal Speech Pattern: Clear, Appropriate - Laboratory and Diagnostics Result Diagrams: 07/26/21 05:42 07/26/21 05:42 Labs: 07/23/21 08:05 Stool Stool Culture - Final Methicillin Resis Staph Aureus 07/23/21 08:05 Stool - Final Laboratory WBC 3.5 X10^3/uL (3.6-10.0) L 07/26/21 05:42 RBC 3.50 X10^6/uL (4.7-6.0) L 07/26/21 05:42 Hgb 11.6 g/dL (13.5-18.0) L 07/26/21 05:42 Hct 34.5 % (42.0-54.0) L 07/26/21 05:42 MCV 98.5 fL (80.0-100.0) 07/26/21 05:42 MCH 33.2 pg (27.0-34.0) 07/26/21 05:42 MCHC 33.7 g/dL (33.0-35.0) 07/26/21 05:42 RDW 13.8 % (11.6-16.5) 07/26/21 05:42 Plt Count 284 X10^3/uL (150.0-450.0) 07/26/21 05:42 MPV 8.2 fL (7.4-11.0) 07/26/21 05:42 Neut % (Auto) 47.0 % (42.0-75.0) 07/26/21 05:42 Lymph % (Auto) 33.6 % (21.0-51.0) 07/26/21 05:42 Baldwin % (Auto) 12.8 % (0.0-13.0) 07/26/21 05:42 Eos % (Auto) 5.3 % (0.9-2.9) H 07/26/21 05:42 Baso % (Auto) 1.3 % (0.2-1.0) H 07/26/21 05:42 Neut # (Auto) 1.6 x10^3/uL (2.2-4.8) L 07/26/21 05:42 Lymph # (Auto) 1.2 X10^3/uL (1.3-2.9) L 07/26/21 05:42 Baldwin # (Auto) 0.4 x10^3/uL (0.3-0.8) 07/26/21 05:42 Eos # (Auto) 0.2 x10^3/uL (0.0-0.2) 07/26/21 05:42 Baso # (Auto) 0.0 X10^3/uL (0.0-0.1) 07/26/21 05:42 Absolute Nucleated RBC 0.0 /100WBC 07/26/21 05:42 PT 13.7 SECONDS (11.8-14.3) 07/21/21 13:08 INR Target Range - 07/21/21 13:08 INR 1.11 (0.8-1.3) 07/21/21 13:08 APTT 29.6 SECONDS (22.9-36.5) 07/21/21 13:08 PTT Comment - 07/21/21 13:08 Sodium 146 mmol/L (136-145) H 07/26/21 05:42 Corrected Sodium TNP 07/26/21 05:42 Potassium 4.7 mmol/L (3.5-5.1) 07/26/21 05:42 Chloride 110 mmol/L (98-107) H 07/26/21 05:42 Carbon Dioxide 29.8 mmol/L (21-32) 07/26/21 05:42 BUN 12 mg/dL (7-18) 07/26/21 05:42 Creatinine 0.78 mg/dL (0.70-1.30) 07/26/21 05:42 Est GFR (MDRD) Af Amer > 60 (>60) 07/26/21 05:42 Est GFR (MDRD) Non-Af > 60 (>60) 07/26/21 05:42 Glucose 89 mg/dL (65-99) 07/26/21 05:42 Calcium 8.2 mg/dL (8.5-10.1) L 07/26/21 05:42 Corrected Calcium 8.8 mg/dL (8.5-10.1) 07/26/21 05:42 Magnesium 1.6 mg/dL (1.7-2.9) L 07/26/21 05:42 Total Bilirubin 0.40 mg/dL (0.2-1.0) 07/26/21 05:42 AST 45 Units/L (15-37) H 07/26/21 05:42 ALT 40 Units/L (12-78) 07/26/21 05:42 Alkaline Phosphatase 125 Units/L (46-116) H 07/26/21 05:42 Creatine Kinase 89 Units/L (39-308) 07/22/21 06:59 CK-MB (CK-2) 1.1 ng/mL (0-4.0) 07/22/21 06:59 CK/CKMB % Calc 1.2 % (<4) 07/22/21 06:59 Troponin I High Sens 9.6 ng/L (4.0-60.0) 07/22/21 06:59 Total Protein 7.4 g/dL (6.4-8.2) 07/26/21 05:42 Albumin 3.3 g/dL (3.4-5.0) L 07/26/21 05:42 Globulin 4.1 g/dL (2.5-4.5) 07/26/21 05:42 Albumin/Globulin Ratio 0.8 Ratio (1.1-2.1) L 07/26/21 05:42 Stool for White Cells Negative (NEGATIVE) 07/23/21 08:05 Stl C. diff Tox B Gene Negative (NEGATIVE) 07/23/21 08:05 Stl C. diff [id number] Presumptive negative (NEGATIVE) 07/23/21 08:05 SARS CoV-2 RNA Rapid JAGJIT Negative (NEGATIVE) 07/21/21 17:38 - Plan (1) MRSA infection Status: Acute Plan: IV FLUIDS, IV VANCOMYCIN, POTASSIUM AND MAGNESIUM PROTOCOLS, MAG OX BID, TORADOL 30MG IV Q8H, RESUME HOME MEDS (2) Diarrhea Status: Acute Qualifiers: Diarrhea type: infectious Qualified Code(s): A09 - Infectious gastroenteritis and colitis, unspecified (3) Dehydration Status: Acute (4) Hypomagnesemia Status: Acute (5) Hypokalemia Status: Acute (6) GERD (gastroesophageal reflux disease) Status: Chronic Qualifiers: Esophagitis presence: esophagitis presence not specified Qualified Code(s): K21.9 - Gastro-esophageal reflux disease without esophagitis (7) HLD (hyperlipidemia) Status: Chronic Qualifiers: Hyperlipidemia type: mixed hyperlipidemia Qualified Code(s): E78.2 - Mixed hyperlipidemia (8) HTN (hypertension) Status: Chronic Qualifiers: Hypertension type: primary hypertension Qualified Code(s): I10 - Essential (primary) hypertension
[2021-07-26] MEDS: MAGNESIUM SULFATE 1 GRAM/100 mL PREMIX 1 G/100 ML BAG IV PRN ×2 (10:21→11:29)
[2021-07-26] MEDS: EUCERIN TOP SCH ×2 (10:24→20:26)
[2021-07-26] MEDS: TEMOVATE CREAM EXT SCH ×2 (10:24→20:26)
[2021-07-26] MEDS: CLARITIN PO SCH (20:26)
[2021-07-26] MEDS: CRESTOR TAB 10 MG PO SCH (20:26)
[2021-07-26] MEDS: RESTORIL CAP 15 MG PO PRN (20:27)
[2021-07-26] MEDS: NORCO 5/325 MG TAB PO PRN (20:27)
[2021-07-26] MEDS: VALIUM PO PRN (20:27)
[2021-07-26] MEDS ORDERED: PHARMACY COMMENT IV NR (20:30)
[2021-07-26 21:23] LABS: CREATININE 0.92 mg/dL (0.70-1.30); VANCOMYCIN,TROUGH 9.9 ug/mL (15-20)
[2021-07-27] MEDS: TORADOL 30 MG VIAL IVP SCH (01:55)
[2021-07-27] MEDS: NS 1,000 ML IV 1,000 ML IV SCH (04:16)
[2021-07-27 06:15] LABS: ALANINE AMINOTRANSFERASE 37 Units/L (12-78); ALBUMIN 2.9 g/dL (3.4-5.0); ALKALINE PHOSPHATASE 117 Units/L (46-116); ASPARTATE AMINO TRANSFERASE 41 Units/L (15-37); BLOOD UREA NITROGEN 13 mg/dL (7-18); CALCIUM 8.6 mg/dL (8.5-10.1); CARBON DIOXIDE 27.4 mmol/L (21-32); CHLORIDE 112 mmol/L (98-107); COR CA(FOR HYPOALB) 9.5 mg/dL (8.5-10.1); CREATININE 0.81 mg/dL (0.70-1.30); MAGNESIUM 1.7 mg/dL (1.7-2.9); SODIUM 146 mmol/L (136-145); TOTAL PROTEIN 6.7 g/dL (6.4-8.2); eGFR NON BLACK RACES > 60 (>60)
[2021-07-27 06:16] LABS: BASOPHILS # (AUTO) 0.1 X10^3/uL (0.0-0.1); BASOPHILS % (AUTO) 1.5 % (0.2-1.0); EOSINOPHILS # (AUTO) 0.3 x10^3/uL (0.0-0.2); EOSINOPHILS % (AUTO) 7.1 % (0.9-2.9); HEMATOCRIT 34.5 % (42.0-54.0); HEMOGLOBIN 11.6 g/dL (13.5-18.0); LYMPHOCYTES # (AUTO) 1.1 X10^3/uL (1.3-2.9); LYMPHOCYTES % (AUTO) 31.2 % (21.0-51.0); MEAN CORPUSCULAR HEMOGLOBIN 33.3 pg (27.0-34.0); MEAN CORPUSCULAR HGB CONC 33.6 g/dL (33.0-35.0); MEAN CORPUSCULAR VOLUME 99.3 fL (80.0-100.0); MEAN PLATELET VOLUME 8.1 fL (7.4-11.0); MONOCYTES # (AUTO) 0.5 x10^3/uL (0.3-0.8); MONOCYTES % (AUTO) 13.8 % (0.0-13.0); NEUTROPHILS # (AUTO) 1.7 x10^3/uL (2.2-4.8); NEUTROPHILS % (AUTO) 46.4 % (42.0-75.0); RED BLOOD COUNT 3.47 X10^6/uL (4.7-6.0); RED CELL DISTRIBUTION WIDTH 13.8 % (11.6-16.5); WHITE BLOOD COUNT 3.6 X10^3/uL (3.6-10.0)
[2021-07-27] MEDS: MAG-OX TAB PO SCH (07:36)
[2021-07-27] MEDS: ASPIRIN 81 MG CHEWTAB PO SCH (08:27)
[2021-07-27] MEDS: EUCERIN TOP SCH (08:28)
[2021-07-27] MEDS: PEPCID TAB 40 MG PO SCH (08:28)
[2021-07-27] MEDS: COLCRYS TAB 0.6 MG PO SCH (08:28)
[2021-07-27] MEDS: TRICOR TAB 145 MG PO SCH (08:29)
[2021-07-27] MEDS: TEMOVATE CREAM EXT SCH (08:29)
[2021-07-27] MEDS: VANCOMYCIN IV *PREMIX 1.25 G/250 ML BAG 1.25 G/250 ML PIGGYBACK IV SCH (08:32)
[2021-07-27] MEDS: ZESTRIL TAB 10 MG PO SCH (08:32)
[2021-07-27] MEDS: MAGNESIUM SULFATE 1 GRAM/100 mL PREMIX 1 G/100 ML BAG IV PRN ×2 (10:13→11:03)
[2021-07-27 12:22] VITALS: BP 150/86
[2021-07-27] MEDS ORDERED: VANCOMYCIN IV *PREMIX 1.5 G/300 ML BAG 1.5 G/300 ML PIGGYBACK IV SCH (21:00)
[2021-07-29] MEDS ORDERED: PHARMACY COMMENT IV NR (08:30)
== END 2021-07-27 13:15 | disposition home or self-care (01) | DRG 373 ==
LOC: ER 11:58 → MED/SURG 18:00
PROVIDERS: ADMIT Internal Medicine; ATTEND Internal Medicine